=== PATIENT | male | born 1960 | race Caucasian/White ===

== ENCOUNTER 2016-08-30 16:05 | Emergency (ER) | payer MEDICARE, OTHER ==
[~2016-08-30 16:05] MED LIST: ACET-704 PO; AMIT25TA PO; DIAZ10TA PO; DOCU-27 PO; HYDR-2762 PO; WARF10TA PO; WARF7.5T PO
--- NOTE | 2016-08-30 16:17 | PHYS DOC ---
General Chief Complaint: cp Stated Complaint: CHEST PAIN Time Seen by MD: 16:11 Source: patient, old records Exam Limitations: no limitations Problems: History of Present Illness Initial Comments Pt is 56/M to ED POV c/o CP. Pt states today about noon while at rest he developed ant CP (pressure) 3/10 with dyspnea, diaphoresis, nausea, and L arm aching. Pt was d/c from [facility] yesterday after proximal LAD stent on Sunday. CP described as identical/same as before stent. Sx onset at noon, resolved upon ED arrival. 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 Timing/Duration: 4-6 hours Severity: mild Modifying Factors: improves with other Associated Symptoms: chest pain, diaphoresis, malaise, nausea/vomiting, shortness of breath, weakness, other Allergies: Coded Allergies: No Known Allergies (Unverified Allergy, Unknown, 01/11/14) Past Medical History Medical History: high cholesterol, hypertension, vascular disease, other (DVT, PE, OA, SVT) Surgical History: other (Right total hip arthroplasty at 28 y/o, alisia, appy, EGD, colonoscopy with polypectomy) Social History Smoker: cigarettes (1PPD since 21 y/o) Alcohol: rarely Drugs: none Review of Systems Constitutional: see HPIdenies chills, diaphoresisdenies fever, malaise Respiratory: denies cough, shortness of breathdenies wheezing Cardiovascular: chest paindenies edema, denies palpitations, denies syncope Gastrointestinal: denies abdominal pain, denies diarrhea, denies nausea, denies vomiting Genitourinary: denies dysuria, denies frequency, denies hematuria Musculoskeletal: see HPIdenies back pain, denies joint swelling, denies neck pain Psychiatric/Neurological: denies headache, denies numbness, denies paresthesia Hematologic/Lymphatic: denies blood clots, denies easy bleeding, denies easy bruising Physical Exam General Appearance: WD/WN, no apparent distress Eyes: bilateral eye EOMI, bilateral eye PERRL, bilateral eye normal inspection Ear, Nose, Throat: hearing grossly normal, normal ENT inspection, normal pharynx Neck: non-tender, supple Respiratory: normal breath sounds, no respiratory distress Cardiovascular: normal peripheral pulses, regular rate, rhythm Gastrointestinal: non tender, soft Back: no CVA tenderness, no vertebral tenderness Extremities: non-tender, normal inspection, other (trace pitting LE edema) 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 Dr Westfall to be consulted, probable cytology laboratory manager in am. Troponin elevation 0.33 called to ED, RN contacted/notified Dr Westfall no new orders. Departure Disposition: XFER OTHER Diagnosis: chest pain, h/o CAD Condition: STABLE Additional Instructions: EMS transfer to [facility] Dr Joshi is accepting, Dr Westfall to be consulted. CLARA TERRELL DO Aug 30, 2016 16:16
[2016-08-30] MEDS ORDERED: MORPHINE SULFATE 2 MG/ML DISP.SYRIN. IV/SQ PRN (16:45)
[2016-08-30] MEDS ORDERED: NITROGLYCERIN SUBLINGUAL 0.4 MG BOTTLE OF 25. SL PRN (17:00)
[2016-08-30] MEDS ORDERED: ASPIRIN 81 MG TAB.CHEW PO ONE (17:10)
[2016-08-30 17:31] LABS: BASO # 0.1 x10^3/uL (0.0-0.2); BASO % 1 % (0-3); EOS # 0.1 x10^3/uL (0.0-0.7); EOS % 1 % (0-3); HEMATOCRIT 45.6 % (39.0-53.0); HEMOGLOBIN 15.4 g/dL (13.0-17.5); LYMPH % 32 % (24-48); MEAN CORPUSCULAR HEMOGLOBIN 32 pg (25-35); MEAN CORPUSCULAR HGB CONC 34 g/dL (31-37); MEAN CORPUSCULAR VOLUME 94 fL (79-100); MONO # 0.4 x10^3/uL (0.0-1.1); MONO % 7 % (0-9); NEUT # 3.7 x10^3uL (1.8-7.7); NEUT % 59 % (31-73); PLATELET COUNT 249 x10^3/uL (140-400); RED BLOOD COUNT 4.88 x10^6/uL (4.30-5.70); RED CELL DISTRIBUTION WIDTH 13.2 % (11.5-14.5); WHITE BLOOD COUNT 6.3 x10^3/uL (4.0-11.0)
[2016-08-30 17:46] LABS: ALBUMIN 3.5 g/dL (3.4-5.0); ALBUMIN/GLOBULIN RATIO 0.9 (1.0-1.7); CALCIUM 9.1 mg/dL (8.5-10.1); GFR 77.3; MAGNESIUM 1.9 mg/dL (1.8-2.4); POTASSIUM 3.8 mmol/L (3.5-5.1); TOTAL BILIRUBIN 0.5 mg/dL (0.2-1.0); TOTAL PROTEIN 7.6 g/dL (6.4-8.2)
[2016-08-30] MEDS ORDERED: ONDANSETRON PF 4 MG/2 ML VIAL. IV ONE (18:30)
[2016-08-30 18:33] VITALS: BP 133/108
--- NOTE | 2016-08-31 02:49 | EKG ---
[address] [address] Test Date: 2016-08-30 Test Time: 16:14:12 Pat Name: LAKHWINDER VENTURA Department: Room: Gender: M [employer]: : 1960 Requested By: CLARA TERRELL Order Number: [id number] Reading MD: Measurements Intervals [place] Rate: 62 P: 36 RI: 148 QRS: 17 QRSD: 88 T: 18 QT: 384 QTc: 392 Interpretive Statements SINUS RHYTHM NORMAL ECG RI6.01 Unconfirmed report No previous ECG available for comparison
--- NOTE | 2016-08-31 08:08 | RAD ---
Portable chest, 08/30/2016: History: Chest pain Comparison is made to a study from 07/11/2016. The heart size and pulmonary vascularity are normal. No pulmonary infiltrates are seen. There is no evidence of pleural fluid. IMPRESSION: No acute cardiopulmonary abnormality is detected.
== END 2016-08-30 18:40 | disposition short-term general hospital (02) ==
LOC: ER 16:05
DX: R07.89 Other chest pain (principal); M79.602 Pain in left arm; I25.10 Atherosclerotic heart disease of native coronary artery without angina pectoris; I10 Essential (primary) hypertension; I47.1 Supraventricular tachycardia; E78.00 Pure hypercholesterolemia, unspecified; M19.90 Unspecified osteoarthritis, unspecified site; F17.210 Nicotine dependence, cigarettes, uncomplicated; Z86.711 Personal history of pulmonary embolism; Z86.718 Personal history of other venous thrombosis and embolism
CPT/HCPCS: 36415; 71010; 80053; 82550; 83690; 83735; 83880; 84484; 85027; 85610; 85730; 93005; 96374; 96375; 99285; J2270; J2405

== ENCOUNTER 2016-12-01 13:02 | Inpatient (IN) | payer MEDICARE, OTHER ==
[~2016-12-01] VITALS: Ht 193 cm; Wt 108.9 kg
[~2016-12-01 13:02] MED LIST changes: +DOCU-109 PO; -DOCU-27 PO; -WARF10TA PO; +WARF10TA45 PO; -WARF7.5T PO; +WARF7.5T48 PO
[2016-12-01] MEDS ORDERED: NITROGLYCERIN PREMIX 250 ML IV ONE (13:45)
[2016-12-01] MEDS ORDERED: fentaNYL PF 100 MCG/2 ML VIAL IV PRN ×2 (13:45→16:30)
[2016-12-01] MEDS ORDERED: ASPIRIN 81 MG TAB.CHEW PO ONE (13:45)
[2016-12-01 14:07] LABS: BASO # 0.1 x10^3/uL (0.0-0.2); BASO % 1 % (0-3); EOS # 0.1 x10^3/uL (0.0-0.7); EOS % 1 % (0-3); HEMATOCRIT 41.8 % (39.0-53.0); HEMOGLOBIN 14.3 g/dL (13.0-17.5); LYMPH % 31 % (24-48); MEAN CORPUSCULAR HEMOGLOBIN 31 pg (25-35); MEAN CORPUSCULAR HGB CONC 34 g/dL (31-37); MEAN CORPUSCULAR VOLUME 91 fL (79-100); MONO # 0.5 x10^3/uL (0.0-1.1); MONO % 8 % (0-9); NEUT # 3.8 x10^3uL (1.8-7.7); NEUT % 59 % (31-73); PLATELET COUNT 255 x10^3/uL (140-400); RED BLOOD COUNT 4.57 x10^6/uL (4.30-5.70); RED CELL DISTRIBUTION WIDTH 13.4 % (11.5-14.5); WHITE BLOOD COUNT 6.5 x10^3/uL (4.0-11.0)
--- NOTE | 2016-12-01 14:13 | RAD ---
INDICATION: CP COMPARISON: 08/30/2016 FINDINGS: Single view of chest obtained. No focal airspace consolidation. Mediastinal contour is unremarkable. No gross osseous destructive lesion. IMPRESSION: No focal airspace consolidation or edema.
[2016-12-01 14:20] LABS: ALBUMIN 3.4 g/dL (3.4-5.0); ALBUMIN/GLOBULIN RATIO 0.9 (1.0-1.7); CALCIUM 8.7 mg/dL (8.5-10.1); GFR 77.3; POTASSIUM 3.8 mmol/L (3.5-5.1); TOTAL BILIRUBIN 0.5 mg/dL (0.2-1.0); TOTAL PROTEIN 7.4 g/dL (6.4-8.2)
[2016-12-01] MEDS ORDERED: IOHEXOL 300 MG/ML 75 ML VIAL. IV ONE (14:35)
--- NOTE | 2016-12-01 14:38 | EKG ---
[address] [address] Test Date: 2016-12-01 Test Time: 13:24:38 Pat Name: LAKHWINDER VENTURA Department: Room: Gender: M Vp [employer]: : 1960 Requested By: ALAN BARRETT Order Number: [id number] Reading MD: Measurements Intervals [place] Rate: 82 P: 31 CT: 128 QRS: 4 QRSD: 90 T: 21 QT: 354 QTc: 416 Interpretive Statements SINUS RHYTHM NORMAL ECG RI6.01 Unconfirmed report No previous ECG available for comparison
--- NOTE | 2016-12-01 15:18 | RAD ---
INDICATION: History of pulmonary embolus with chest pain COMPARISON: 07/12/2016 TECHNIQUE: Axial CT images obtained through the chest. Intravenous contrast utilized and three-dimensional images processed per protocol. FINDINGS: Linear opacity is again seen within the lingular region. Cystic changes of lungs seen. Sub-4 mm nodule near left lung apex again seen. No evidence of pneumothorax. Sub-4 mm right lung base pulmonary nodule again seen. Subcentimeter low-attenuation lesion right lobe of liver again seen, too small to characterize. Small hiatal hernia. No thoracic aortic aneurysm. Suspected stent in the left anterior descending coronary artery. Borderline sized lymph node in the left paratracheal region again seen measuring approximately 1 cm short axis. Degenerative changes of spine. No central pulmonary embolus. IMPRESSION: 1. No central pulmonary embolus. 2. Redemonstration of multiple tiny bilateral pulmonary nodules. Given the size these are most commonly benign. 3. There are some cystic changes to the lungs bilaterally. Correlate for possible causes such as emphysema. PQRS Compliance Statement: One or more of the following individualized dose reduction techniques were utilized for this examination: 1. Automated exposure control 2. Adjustment of the mA and/or kV according to patient size 3. Use of iterative reconstruction technique
[2016-12-01 15:46] LABS: AMPHETAMINE/METHAMPHETAMINE NEG (NEG); BARBITURATES NEG (NEG); BENZODIAZEPINES POS (NEG); CANNABINOIDS NEG (NEG); COCAINE NEG (NEG); METHADONE NEG (NEG); OPIATES NEG (NEG); PHENCYCLIDINE NEG (NEG)
[2016-12-01 15:57] LABS: BILIRUBIN,URINE NEG (NEG); CLARITY,URINE CLEAR; COLOR,URINE YELLOW; GLUCOSE,URINE NEG (NEG); NITRITE,URINE NEG (NEG); UROBILINOGEN,URINE 0.2 mg/dL (0.2 mg/dL)
[2016-12-01 15:58] LABS: BACTERIA,URINE 0 /HPF (0-FEW); RBC,URINE 0 /HPF (0-2); SQUAMOUS EPITHELIAL CELL,UR FEW /LPF; WBC,URINE OCC /HPF (0-4)
[2016-12-01] MEDS ORDERED: ONDANSETRON PF 4 MG/2 ML VIAL. IV PRN (16:30)
[2016-12-01] MEDS ORDERED: ACETAMINOPHEN 325 MG TABLET PO PRN (16:30)
--- NOTE | 2016-12-01 17:16 | PDOC2 ---
JENNIFER VICENTE FARM MECHANIC 12/01/16 1716: CONSULT Date of Admission DATE: 12/01/16 TIME: 16:59 Reason for Consult: Chest pain History of Present Illness Mr Irvin is a 56 year old male with history of PCI/NILS to proximal LAD in early August who presents to the ED with complaints of chest pain, intermittent since the last 2 weeks. He reports pain both at rest and with exertion, localized to left sternal border and occasionally radiating to his back with associated nausea. He denies any difference in the pain with exertion, deep inspiration or movement. He reports that today he was at the [place] getting some medications filled when he started to have pain. He rested in an office for a few minutes without difference in the pain. He then went out to his truck, went home to find his medication list and then came to the hospital. He was given fentanyl and then placed on a nitro drip which he reports resolved his pain. He is currently on low dose Nitro and says he feels like he could go home. z Past Medical History Cardiac cath in early August of this year with single vessel coronary disease, s/ p PCI with NILS to proximal LAD. Repeat cath for chest pain in mid August with open stent and no other significant disease. Echo with normal LV function in Jun of this year MPI with normal perfusion in July of this year. Cardiovascular: hyperipidemia, Other (PSVT) Pulmonary: Pulmonary embolus, Other (DVT) Psych: Anxiety Musculoskeletal: Osteoarthritis, Other (right sided foot drop, chronic pain from right hip) Past Surgical History Past Surgical History multiple hip surgeries, cholecystectomy Family History Family History: Hypertension Social History Social History smoker, no illicit drugs, no significant ETOH Current Medications Current Medications Aspirin (Children'S Aspirin) 324 mg 1X ONCE PO Last administered on 12/01/16 14:10; Start 12/01/16 at 13:45; Stop 12/01/16 at 13:46; Status DC Nitroglycerin/ Dextrose 250 ml @ 3 mls/hr 1X ONCE IV Last administered on 12/01 14:56; Start 12/01/16 at 13:45; Stop 12/05/16 at 01:04 Fentanyl Citrate (Fentanyl 2ml Vial) 25 mcg PRN Q15MIN PRN IV PAIN GREATER THAN 3/10 Last administered on 12/01/16 14:14; Start 12/01/16 at 13:45; Stop at 13:44 Iohexol (Omnipaque 300 Mg/ml) 75 ml 1X ONCE IV Last administered on 12/01/16t 14:36; Start 12/01/16 at 14:35; Stop 12/01/16 at 14:36; Status DC Ondansetron HCl (Zofran) 4 mg PRN Q4HRS PRN IV NAUSEA/VOMITING; Start 12/01/16 at 16:30; Stop 12/02/16 at 16:29 Fentanyl Citrate (Fentanyl 2ml Vial) 50 mcg PRN Q2HR PRN IV PAIN; Start at 16:30; Stop 12/02/16 at 16:29 Acetaminophen (Tylenol) 650 mg PRN Q4HRS PRN PO FEVER; Start 12/01/16 at 16:30 ; Stop 12/02/16 at 16:29 Nitroglycerin (Nitrostat) 0.4 mg PRN Q5MIN PRN SL CHEST PAIN; Start 12/01/16 at 16:30; Stop 12/02/16 at 16:29 Active Scripts Active Reported Colace (Docusate Sodium) 100 Mg Capsule 100 Mg PO PRN DAILY PRN Valium (Diazepam) 10 Mg Tablet 10 Mg PO QHS PRN Coumadin (Warfarin Sodium) 10 Mg Tablet 10 Mg PO QTUTHSASU Coumadin (Warfarin Sodium) 7.5 Mg Tablet 7.5 Mg PO QMWF Amitriptyline Hcl 25 Mg Tablet 25 Mg PO HS Tylenol With Codeine #3 Tablet (Acetaminophen With Codeine) 1 Each Tablet 1 Each PO HS Hydrocodone-Apap 7.5-325 (Hydrocodone Bit/Acetaminophen) 1 Each Tablet 1 Tab PO PRN Q6HRS PRN Allergies: Coded Allergies: citalopram (Verified Allergy, Unknown, 12/01/16) simvastatin (Verified Allergy, Unknown, 12/01/16) Review of System as per HPI or negative General: Alert, Oriented X3, Cooperative, No acute distress HEENT: Atraumatic, EOMI, Mucous membr. moist/pink Lungs: Clear to auscultation, Normal air movement Heart: Regular rate, Normal S1, Normal S2, Other (no gallops, clicks or rubs) Abdomen: Normal bowel sounds, Soft, No tenderness Extremities: No clubbing, No cyanosis, Normal pulses Neuro: Normal speech Psych/Mental Status: Mental status NL, Mood NL VITALS Vital Signs Date Time Temp Pulse Resp B/P (MAP) Pulse Ox O2 Delivery O2 Flow Rate FiO2 12/01/16 15:55 56 12 116/72 (87) 97 Room Air 12/01/16 13:25 98.2 Labs Laboratory Tests Test 12/01/16 13:47 12/01/16 15:20 White Blood Count 6.5 x10^3/uL (4.0-11.0) Red Blood Count 4.57 x10^6/uL (4.30-5.70) Hemoglobin 14.3 g/dL (13.0-17.5) Hematocrit 41.8 % (39.0-53.0) Mean Corpuscular Volume 91 fL (79-100) Mean Corpuscular Hemoglobin 31 pg (25-35) Mean Corpuscular Hemoglobin Concent 34 g/dL (31-37) Red Cell Distribution Width 13.4 % (11.5-14.5) Platelet Count 255 x10^3/uL (140-400) Neutrophils (%) (Auto) 59 % (31-73) Lymphocytes (%) (Auto) 31 % (24-48) Monocytes (%) (Auto) 8 % (0-9) Eosinophils (%) (Auto) 1 % (0-3) Basophils (%) (Auto) 1 % (0-3) Neutrophils # (Auto) 3.8 x10^3uL (1.8-7.7) Lymphocytes # (Auto) 2.0 x10^3/uL (1.0-4.8) Monocytes # (Auto) 0.5 x10^3/uL (0.0-1.1) Eosinophils # (Auto) 0.1 x10^3/uL (0.0-0.7) Basophils # (Auto) 0.1 x10^3/uL (0.0-0.2) Prothrombin Time 22.6 SEC (9.4-11.4) Prothromb Time International Ratio 2.2 (0.9-1.1) Activated Partial Thromboplast Time 52 SEC (23-33) Sodium Level 138 mmol/L (136-145) Potassium Level 3.8 mmol/L (3.5-5.1) Chloride Level 102 mmol/L (98-107) Carbon Dioxide Level 25 mmol/L (21-32) Anion Gap 11 (6-14) Blood Urea Nitrogen 14 mg/dL (8-26) Creatinine 1.0 mg/dL (0.7-1.3) Estimated GFR (Cockcroft-Gault) 77.3 BUN/Creatinine Ratio 14 (6-20) Glucose Level 88 mg/dL (70-99) Calcium Level 8.7 mg/dL (8.5-10.1) Total Bilirubin 0.5 mg/dL (0.2-1.0) Aspartate Amino Transf (AST/SGOT) 17 U/L (15-37) Alanine Aminotransferase (ALT/SGPT) 22 U/L (16-63) Alkaline Phosphatase 77 U/L (46-116) Troponin I Quantitative < 0.017 ng/mL (0-0.055) UM-Awo-A-Type Natriuretic Peptide 37 pg/mL (0-124) Total Protein 7.4 g/dL (6.4-8.2) Albumin 3.4 g/dL (3.4-5.0) Albumin/Globulin Ratio 0.9 (1.0-1.7) Lipase 122 U/L (73-393) Urine Collection Type Unknown Urine Color Yellow Urine Clarity Clear Urine pH 5.0 Urine Specific [place] <=1.005 Urine Protein Neg (NEG-TRACE) Urine Glucose (UA) Neg mg/dL (NEG) Urine Ketones (Stick) Neg mg/dL (NEG) Urine Blood Small (NEG) Urine Nitrite Neg (NEG) Urine Bilirubin Neg (NEG) Urine Urobilinogen Dipstick 0.2 mg/dL (0.2 mg/dL) Urine Leukocyte Esterase Neg (NEG) Urine RBC 0 /HPF (0-2) Urine WBC Occ /HPF (0-4) Urine Squamous Epithelial Cells Few /LPF Urine Bacteria 0 /HPF (0-FEW) Urine Opiates Screen Neg (NEG) Urine Methadone Screen Neg (NEG) Urine Barbiturates Neg (NEG) Urine Phencyclidine Screen Neg (NEG) Urine Amphetamine/Methamphetamine Neg (NEG) Urine Benzodiazepines Screen Pos (NEG) Urine Cocaine Screen Neg (NEG) Urine Cannabinoids Screen Neg (NEG) Urine Ethyl Alcohol Neg (NEG) Images EKG - sinus rhythm, delayed R progression, non specific st/t abn. Assessment/Plan 1. Chest pain, atypical - currently on NTG drip, no acute EKG abn, normal initial troponin. PCI with NILS to LAD in August with repeat cath 2 weeks later and open stent with otherwise normal coronaries. Continue medical mgmt, if enzymes remain normal suggest oral nitrates and outpatient follow up. 2. hypertension - controlled 3. hyperlipidemia - continue statin 4. 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 if no change in [place], and pain controlled, could follow up outpatient for further evaluation in 1-2 weeks. Problems: DANTE HAYES MD 12/01/16 2131: CONSULT Allergies: Coded Allergies: citalopram (Verified Allergy, Unknown, 12/01/16) simvastatin (Verified Allergy, Unknown, 12/01/16) Assessment/Plan Patient seen and examined. Agree with SUPERVISOR RIDES's assessment and plan. CP with atypical features. NH ruled out based on EKG and cardiac enzymes. Recent cath results noted above. Agree with initiating long acting nitrates. Possible DC home in AM. If CP recurrent, we will consider MPI as outpatient. Thank you for your consultation. Problems: JENNIFER VICENTE APRN Dec 01, 2016 17:16 DANTE HAYES MD Dec 01, 2016 21:31
[2016-12-01 17:43] VITALS: BP 118/80
--- NOTE | 2016-12-01 18:40 | ED.ADGEN ---
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 Patient states he is experiencing a sharp pain with tingling consistent with the pain he experienced when his stent was placed intermittently all day today. Currently states the pain is about a 4 out of 10. States it will occasionally radiate somewhat into his arm, into his back. Associated with some nausea, no vomiting, very mild shortness of breath, denies any focal weakness, numbness, tingling, fevers, chills, abdominal pain, swelling extremities, rashes , recent travel or surgery. No swelling extremities. States he's been compliant with all medications including his Coumadin. He follows with Dr. Hinson of cardiology. Review of Systems Review of Systems Constitutional: Denies fever or chills [] Eyes: Denies change in visual acuity, redness, or eye pain [] HENT: Denies nasal congestion or sore throat [] Respiratory: Denies cough or shortness of breath [] Cardiovascular: No additional information not addressed in HPI [] GI: Denies abdominal pain, nausea, vomiting, bloody stools or diarrhea [] : Denies dysuria or hematuria [] Musculoskeletal: Denies back pain or joint pain [] Integument: Denies rash or skin lesions [] Neurologic: Denies headache, focal weakness or sensory changes [] Endocrine: Denies polyuria or polydipsia [] Current Medications Current Medications Current Medications Medications (Trade) Dose Ordered Sig/Josefa Start Time Stop Time Status Last Admin Dose Admin Acetaminophen (Tylenol) 650 mg PRN Q4HRS PRN 12/01/16 16:30 12/02/16 16:29 Aspirin (Children'S Aspirin) 324 mg 1X ONCE 12/01/16 13:45 12/01/16 13:46 DC 12/01/16 14:10 324 MG Fentanyl Citrate (Fentanyl 2ml Vial) 50 mcg PRN Q2HR PRN 12/01/16 16:30 12/02/16 16:29 Iohexol (Omnipaque 300 Mg/ml) 75 ml 1X ONCE 12/01/16 14:35 12/01/16 14:36 DC 12/01/16 14:36 75 ML Nitroglycerin (Nitrostat) 0.4 mg PRN Q5MIN PRN 12/01/16 16:30 12/02/16 16:29 Nitroglycerin/ Dextrose 250 ml @ 3 mls/hr 1X ONCE 12/01/16 13:45 12/05/16 01:04 12/01/16 14:56 3 MLS/HR Ondansetron HCl (Zofran) 4 mg PRN Q4HRS PRN 12/01/16 16:30 12/02/16 16:29 Allergies Allergies Allergies Coded Allergies Type Severity Reaction Last Updated Verified citalopram Allergy Unknown 12/01/16 Yes simvastatin Allergy Unknown 12/01/16 Yes Physical Exam Physical Exam Constitutional: Well developed, well nourished, no acute distress, non-toxic appearance. [] HENT: Normocephalic, atraumatic, bilateral external ears normal, oropharynx moist, no oral exudates, nose normal. [] Eyes: PERRLA, EOMI, conjunctiva normal, no discharge. [] Neck: Normal range of motion, no tenderness, supple, no stridor. [] Cardiovascular:Heart rate regular rhythm, no murmur [] Lungs & Thorax: Bilateral breath sounds clear to auscultation [] Abdomen: Bowel sounds normal, soft, no tenderness, no masses, no pulsatile masses. [] Skin: Warm, dry, no erythema, no rash. [] Back: No tenderness, no CVA tenderness. [] Extremities: No tenderness, no cyanosis, no clubbing, ROM intact, no edema. [] Neurologic: Alert and oriented X 3, normal motor function, normal sensory function, no focal deficits noted. [] Psychologic: Affect normal, judgement normal, mood normal. [] Current Patient Data Vital Signs Vital Signs Date Time Temp Pulse Resp B/P (MAP) Pulse Ox O2 Delivery O2 Flow Rate FiO2 12/01/16 15:55 56 12 116/72 (87) 97 Room Air 12/01/16 13:25 98.2 Lab Results Laboratory Tests Test 12/01/16 13:47 12/01/16 15:20 White Blood Count 6.5 x10^3/uL (4.0-11.0) Red Blood Count 4.57 x10^6/uL (4.30-5.70) Hemoglobin 14.3 g/dL (13.0-17.5) Hematocrit 41.8 % (39.0-53.0) Mean Corpuscular Volume 91 fL (79-100) Mean Corpuscular Hemoglobin 31 pg (25-35) Mean Corpuscular Hemoglobin Concent 34 g/dL (31-37) Red Cell Distribution Width 13.4 % (11.5-14.5) Platelet Count 255 x10^3/uL (140-400) Neutrophils (%) (Auto) 59 % (31-73) Lymphocytes (%) (Auto) 31 % (24-48) Monocytes (%) (Auto) 8 % (0-9) Eosinophils (%) (Auto) 1 % (0-3) Basophils (%) (Auto) 1 % (0-3) Neutrophils # (Auto) 3.8 x10^3uL (1.8-7.7) Lymphocytes # (Auto) 2.0 x10^3/uL (1.0-4.8) Monocytes # (Auto) 0.5 x10^3/uL (0.0-1.1) Eosinophils # (Auto) 0.1 x10^3/uL (0.0-0.7) Basophils # (Auto) 0.1 x10^3/uL (0.0-0.2) Prothrombin Time 22.6 SEC (9.4-11.4) H Prothrombin Time INR 2.2 (0.9-1.1) H PTT 52 SEC (23-33) H Sodium Level 138 mmol/L (136-145) Potassium Level 3.8 mmol/L (3.5-5.1) Chloride Level 102 mmol/L (98-107) Carbon Dioxide Level 25 mmol/L (21-32) Anion Gap 11 (6-14) Blood Urea Nitrogen 14 mg/dL (8-26) Creatinine 1.0 mg/dL (0.7-1.3) Estimated GFR (Cockcroft-Gault) 77.3 BUN/Creatinine Ratio 14 (6-20) Glucose Level 88 mg/dL (70-99) Calcium Level 8.7 mg/dL (8.5-10.1) Total Bilirubin 0.5 mg/dL (0.2-1.0) Aspartate Amino Transferase (AST) 17 U/L (15-37) Alanine Aminotransferase (ALT) 22 U/L (16-63) Alkaline Phosphatase 77 U/L (46-116) Troponin I Quantitative < 0.017 ng/mL (0-0.055) WY-Xey-X-Type Natriuretic Peptide 37 pg/mL (0-124) Total Protein 7.4 g/dL (6.4-8.2) Albumin 3.4 g/dL (3.4-5.0) Albumin/Globulin Ratio 0.9 (1.0-1.7) L Lipase 122 U/L (73-393) Urine Collection Type Unknown Urine Color Yellow Urine Clarity Clear Urine pH 5.0 Urine Specific [place] <=1.005 Urine Protein Neg (NEG-TRACE) Urine Glucose (UA) Neg mg/dL (NEG) Urine Ketones (Stick) Neg mg/dL (NEG) Urine Blood Small (NEG) Urine Nitrite Neg (NEG) Urine Bilirubin Neg (NEG) Urine Urobilinogen Dipstick 0.2 mg/dL (0.2 mg/dL) Urine Leukocyte Esterase Neg (NEG) Urine RBC 0 /HPF (0-2) Urine WBC Occ /HPF (0-4) Urine Squamous Epithelial Cells Few /LPF Urine Bacteria 0 /HPF (0-FEW) Urine Opiates Screen Neg (NEG) Urine Methadone Screen Neg (NEG) Urine Barbiturates Neg (NEG) Urine Phencyclidine Screen Neg (NEG) Urine Amphetamine/Methamphetamine Neg (NEG) Urine Benzodiazepines Screen Pos (NEG) Urine Cocaine Screen Neg (NEG) Urine Cannabinoids Screen Neg (NEG) Urine Ethyl Alcohol Neg (NEG) EKG EKG EC: Sinus rhythm, heart rate 82 bpm, upright axis, QTC of 416, SD 120, QRS of 90, no ST elevations or depressions, contour contour abnormalities noted in inferior leads, with mild baseline artifact, does not meet STEMI criteria. As interpreted by me. Radiology/Procedures Radiology/Procedures [][address] [id number] IMAGING REPORT Signed PATIENT: LAKHWINDER VENTURA ACCOUNT: [id number] : 1960 LOCATION: ER AGE: 56 SEX: M EXAM STATUS: REG ER ORD. PHYSICIAN: ALAN BARRETT DO REASON: CP PROCEDURE: PORTABLE CHEST 1V INDICATION: CP COMPARISON: 08/30/2016 FINDINGS: Single view of chest obtained. No focal airspace consolidation. Mediastinal contour is unremarkable. No gross osseous destructive lesion. IMPRESSION: No focal airspace consolidation or edema. DICTATED AND SIGNED BY: JOEL MENDEZ MD DATE: 12/01/161408 CC: ALAN BARRETT DO; PCP,NO ~ Impressions: [place] [id number] IMAGING REPORT Signed PATIENT: LAKHWINDER VENTURA ACCOUNT: [id number] : 1960 LOCATION: ER AGE: 56 SEX: M EXAM STATUS: REG ER ORD. PHYSICIAN: ALAN BARRETT DO REASON: Cp/SOB, hx PE PROCEDURE: CT ANGIOGRAPHY CHEST INDICATION: History of pulmonary embolus with chest pain COMPARISON: 07/12/2016 TECHNIQUE: Axial CT images obtained through the chest. Intravenous contrast utilized and three-dimensional images processed per protocol. FINDINGS: Linear opacity is again seen within the lingular region. Cystic changes of lungs seen. Sub-4 mm nodule near left lung apex again seen. No evidence of pneumothorax. Sub-4 mm right lung base pulmonary nodule again seen. Subcentimeter low-attenuation lesion right lobe of liver again seen, too small to characterize. Small hiatal hernia. No thoracic aortic aneurysm. Suspected stent in the left anterior descending coronary artery. Borderline sized lymph node in the left paratracheal region again seen measuring approximately 1 cm short axis. Degenerative changes of spine. No central pulmonary embolus. IMPRESSION: 1. No central pulmonary embolus. 2. Redemonstration of multiple tiny bilateral pulmonary nodules. Given the size these are most commonly benign. 3. There are some cystic changes to the lungs bilaterally. Correlate for possible causes such as emphysema. PQRS Compliance Statement: One or more of the following individualized dose reduction techniques were utilized for this examination: 1. Automated exposure control 2. Adjustment of the mA and/or kV according to patient size 3. Use of iterative reconstruction technique DICTATED AND SIGNED BY: JOEL MENDEZ MD DATE: 12/01/16 1502 CC: ALAN BARRETT DO; PCP,NO ~ Course & Med Decision Making Course & Med Decision Making Pertinent Labs and Imaging studies reviewed. (See chart for details) Patient resting more comfortably receiving fentanyl and nitroglycerin in the ED. Chest pain is resolved. ECG does not reveal any concerning findings, chest x -ray is unremarkable, initial troponin is negative. Based on patient's history of PE, although the INR is 2.2, after discussion with patient, CT of the chest obtained to rule out any occult recurrence or other occult chest finding that would be causing his symptoms. CT of the chest not reveal any concerning findings, no evidence of large central PE. I did discuss findings as above with JATIN Suarez for cardiology, patient is agreeable for admission to the hospital for additional evaluation. Findings as above discussed with Dr. Lyn of internal medicine, patient accepted his service as a full admission to the telemetry floor. Patient was evaluated in the emergency department by JATIN Reyes for cardiology, and by Dr. Hinson, at this time will continue to follow serial enzymes, symptomatically management with nitroglycerin, and close monitoring, patient admitted to [facility] without issue, bridge orders entered per discussion. Final Impression Final Impression [] Problems: Dragon Disclaimer Dragon Disclaimer This electronic medical record was generated, in whole or in part, using a voice recognition dictation system. Departure: Impression: Primary Impression: Chest pain Disposition: ADMITTED INPATIENT Admitting Physician: Christian Lyn Condition: IMPROVED ALAN BARRETT DO Dec 01, 2016 18:40
[2016-12-01 20:39] VITALS: BP 126/78
[2016-12-01 21:43] VITALS: BP 126/91
[2016-12-01] MEDS: ISOSORBIDE MONONITRATE ER 30 MG TAB.ER.24H PO SCH (21:59)
[2016-12-01] MEDS ORDERED: WARFARIN 7.5 MG TABLET. PO SCH (22:10)
[2016-12-01 22:47] VITALS: BP 116/73
[2016-12-01 23:37] VITALS: BP 108/64
[2016-12-02] VITALS (13 sets, daily range): BP systolic 95–122; BP diastolic 59–80
--- NOTE | 2016-12-02 04:15 | ACF ---
Admission Criteria Forms CARDIOLOGY GRG Clinical Indications for Admission to Inpatient Care ( Place 'X' for any and all applicable criteria): Hospital admission is needed for appropriate care of the patient because of ANY ONE of the following (1): [ ] I. Hemodynamic instability as indicated by ALL of the following (1)(2)(3) (4)(5) [ ]a) Vital signs or other findings not as expected for chronic patient condition or baseline [ ]b) Instability indicated by ANY ONE of the following: [ ]i) Hypotension [ ]ii) Symptomatic Tachycardia unresponsive to treatment ( e.g., analgesia, fluids, sedation as indicated) [ ]iii) Inadequate perfusion indicated by ANY ONE of the following: [ ] 1) Lactic acidosis (> 2 mmol/L) [ ] 2) New abnormal capillary refill (> 3 seconds) [ ] 3) Reduced urine output [ ] 4) New altered mental status [ ]iv) Orthostatic vital sign changes unresponsive to treatment (e.g., fluids) [ ]v) IV inotropic or vasopressor medication required to maintain adequate blood pressure or perfusion [ ] II. Severe heart failure as indicated by ANY ONE of the following(17)(18) [ ]a) Respiratory distress [ ]b) Hypotension [ ]c) Anasarca (refractory to outpatient therapy) [ ]d) Cardiac arrhythmias of immediate concern [ ]e) Myocardial ischemia [ ] III. Cardiac arrhythmias or findings of immediate concern indicated by ANY ONE of the following (19)(20): [ ] a) Heart rhythms that are inherently dangerous or unstable indicated by ANY ONE of the following (21)(22)(23): [ ] i) Resuscitated ventricular fibrillation or cardiac arrest [ ] ii) Ventricular escape rhythm [ ] iii) Sustained ventricular tachycardia (30 seconds or more of ventricular rhythm at greater than 100 beats per minute) [ ] iv) Nonsustained ventricular tachycardia and ANY ONE of the following: [ ] 1) Suspected cardiac ischemia as cause or consequence of ventricular tachycardia [ ] 2) In setting of acute myocarditis [ ] b) Unstable cardiac conduction defects indicated by ANY ONE of the following(23)(24)(25) [ ] i) Type II second-degree atrioventricular block [ ]ii) Third-degree atrioventricular block [ ]iii) New-onset left bundle branch block with suspected myocardial ischemia [ ]c) Any heart rhythm and ANY ONE of the following (21)(22)(26)(27) (28) [ ] i) Continuous long-term ECG monitoring needed (e.g., initiation of drug requiring monitoring for more than 24 hours) [ ] ii) Patient has automatic implanted cardioverter defibrillator that is repeatedly firing, malfunctioning, or in need of immediate adjustment of settings beyond the scope of ambulatory or observation care [ ]d) Heart rhythms of concern due to ANY ONE of the following: [ ] i) Hypotension [ ] ii) Respiratory distress [ ] iii) Association with other significant symptoms (e.g., bradycardia with syncope or ongoing dizziness, supraventricular tachycardia with chest pain (14)(15)(17) [ ] IV. Monitoring for cardiac contusion beyond the scope of observation care needed [A](30)(31)(32) [ ] V. Surgical or device complication (e.g., valve replacement complication , pacemaker dysfunction) (35)(41)(44)(45)(46) [ ] . Inpatient palliative care needed. [B](49) Also use Inpatient Palliative Care Criteria [ ] VII. Nonbacterial thrombotic (marantic) endocarditis (36)(43)(47)(48) [X ] VIII. Cardiology condition, symptom, or finding for which emergency and observation care has failed or are not considered appropriate. [ ] IX. Acute valvular disease requiring inpatient as indicated by ANY ONE of the following (41) [ ]a) Acute valvular regurgitation (42) [ ]b) Noninfectious valvulitis (43) [ ]c) Obstructive valve thrombosis [ ]d) Paravalvular leak [ ]e) Other significant valvular disorder remaining after emergency or observation level of care (as appropriate) [ ]X. Pericardial disease requiring inpatient treatment as indicated by ANY ONE of the following (33)(34)(35)(36)(37) [ ]a) Suspected tamponade (38)(39)(40) [ ]b) Hemopericardium [ ]c) Other significant pericardial disorder remaining after emergency or observation level of care (as appropriate) [ ] XI. Cardiac ischemia beyond scope of emergency and observation care. [ ] XII. Hypertension requiring inpatient treatment as indicated by ANY ONE of the following (6)(7)(8) [ ]a) SBP greater than 220 mm Hg or DBP greater than 120 mmHg despite treatment [ ]b) SBP greater than 140 mm Hg or DBP greater than 100 mm Hg with evidence of acute end organ damage as indicated by ANY ONE of the following [ ] i) Encephalopathy [ ] ii) Acute renal failure as indicated by new onset of ANY ONE of the following (9)(10)(11)(12)(13) [ ]1) 3-fold rise in serum creatinine from baseline [ ]2) Serum creatinine greater than 4 mg/dL ( 354 micromoles/L) with acute rise greater than 0.5 mg/dL (44.2 micromoles/L) [ ]3) Reduction of more than 75% in estimated glomerular filtration rate from baseline [ ]4) Estimated glomerular filtration rate less than 35 mL/min/1.73m2 (0.59 mL/sec/1.73m2) in child up to 18 years of age [ ]5) Cessation of urine output indicated by ALL of the following [ ]A. Adequate volume status [ ]B. Inadequate urine output as indicated by ANY ONE of the following [ ]a. Urine output less than 0.3 mL/kg/hr for 24 hours [ ]b. Anuria (urine output less than 0.1 mL/kg/hr) for 12 hours [ ] iii) Aortic dissection [ ] iv) Myocardial Ischemia [ ] v) Left ventricular heart failure [ ]vi) Retinal Hemorrhage [ ]vii) Other significant finding [ ]c) Hypertension in child requiring inpatient treatment as indicated by ALL of the following(14)(15)(16) [ ] i) Outpatient treatment not effective, not available, or not appropriate [ ]ii) SBP or DBP greater than 95th percentile for age [ ]iii) Evidence of acute end organ damage as indicated by ANY ONE of the following [ ]1) Altered mental status [ ]2) Acute renal failure as indicated by new onset of ANY ONE of the following(9)(10)(11)(12)(13) [ ]A. 3-fold rise in serum creatinine from baseline [ ]B. Serum creatinine greater than 4 mg/dL (354 micromoles/L) with acute rise greater than 0.5 mg/dL (44.2 micromoles/L) [ ]C. Reduction of more than 75% in estimated glomerular filtration rate from baseline [ ]D. Estimated glomerular filtration rate less than 35 mL/min/1.73m2 (0.59 mL/sec/1.73m2) in child up to 18 years of age [ ]E. Cessation of urine output indicated by ALL of the following [ ]a. Adequate volume status [ ]b. Inadequate urine output as indicated by ANY ONE of the following [ ]i) Urine output less than 0.3 mL/kg/hr for 24 hours [ ]ii) Anuria ( urine output less than 0.1 mL/kg/hr) for 12 hours [ ]3) Severe headache [ ]4) Visual disturbance [ ]5) Retinal hemorrhage [ ]6) Other significant finding [ ]XIII. Complications of transplanted heart indicated by ANY ONE of the following(61): [ ]a) Acute graft rejection requiring inpatient management (eg, intravenous immunosuppression)(62)(63) [ ]b) Acute graft heart failure indicated by ANY ONE of the following(64): [ ]i) Hemodynamic instability [ ]ii) Cardiac arrhythmias of immediate concern [ ]iii) Pulmonary edema that is very severe (eg, mechanical ventilation needed, imminent or likely, need for 100% oxygen to keep oxygen saturation above 90%) [ ]iv) Pulmonary edema that is persistent as indicated by ALL of the following: [ ]1) New need for oxygen therapy to keep oxygen saturation above 90% (or increased FiO2 need from baseline) [ ]2) Has not improved sufficiently with emergency department or observation care IV diuretics or other heart failure treatments[E] [ ]v) Altered mental status that is severe or persistent [ ]vi) Increased creatinine (new on laboratory test) with reduction of more than 50% in estimated glomerular filtration rate from baseline [ ]vii) Progressively (ongoing) rising creatinine (known from past laboratory test) with reduction of more than 25% in estimated glomerular filtration rate from baseline [ ]viii) Acute renal failure [ ]ix) Acute peripheral ischemia (eg, examination shows pulseless, cool, mottled, or cyanotic extremity) [ ]x) Pulmonary artery catheter monitoring needed [ ]xi) Other sign or symptom of heart failure requiring inpatient treatment (ie, too severe or not responsive to outpatient and observation care treatment) [ ]c) Infection requiring inpatient management (eg, Hemodynamic instability, need for intravenous antimicrobial treatment)(66)(67)(68)(69)(70) [ ]d) Cardiac allograft vasculopathy requiring inpatient management ( eg evidence of cardiac ischemia)(71) [ ]e) Other complication of transplanted heart (eg, stroke, severe pulmonary hypertension, severe valvular dysfunction) requiring inpatient management(72) The original [facility] content created by [facility] has been revised. The portions of the content which have been revised are identified through the use of italic text or in bold, and [facility] has neither reviewed nor approved the modified material. All other unmodified content is copyright [facility]. Please see references footnoted in the original [facility] edition 2016 Admission Criteria Met?: Yes BABITA FLORES Dec 02, 2016 04:15
[2016-12-02 06:32] LABS: BASO % 1 % (0-3); EOS # 0.1 x10^3/uL (0.0-0.7); EOS % 3 % (0-3); HEMATOCRIT 38.5 % (39.0-53.0); HEMOGLOBIN 13.1 g/dL (13.0-17.5); LYMPH # 1.8 x10^3/uL (1.0-4.8); LYMPH % 32 % (24-48); MEAN CORPUSCULAR HEMOGLOBIN 31 pg (25-35); MEAN CORPUSCULAR HGB CONC 34 g/dL (31-37); MEAN CORPUSCULAR VOLUME 92 fL (79-100); MONO # 0.5 x10^3/uL (0.0-1.1); MONO % 9 % (0-9); NEUT # 3.1 x10^3uL (1.8-7.7); NEUT % 56 % (31-73); PLATELET COUNT 228 x10^3/uL (140-400); RED BLOOD COUNT 4.18 x10^6/uL (4.30-5.70); RED CELL DISTRIBUTION WIDTH 13.2 % (11.5-14.5); WHITE BLOOD COUNT 5.5 x10^3/uL (4.0-11.0)
[2016-12-02 06:42] LABS: CALCIUM 8.7 mg/dL (8.5-10.1); CREATININE 1.1 mg/dL (0.7-1.3); GFR 69.2; POTASSIUM 4.2 mmol/L (3.5-5.1)
[2016-12-02] MEDS: ISOSORBIDE MONONITRATE ER 30 MG TAB.ER.24H PO SCH (08:21)
[2016-12-02] MEDS: NITROGLYCERIN SUBLINGUAL 0.4 MG BOTTLE OF 25. SL PRN ×2 (11:52→12:11)
[2016-12-02] MEDS ORDERED: WARFARIN 10 MG TABLET. PO SCH (16:00)
[2016-12-02] MEDS ORDERED: ISOS30TA4 PO (16:29)
[2016-12-02] MEDS ORDERED: NITR0.4T22 SL (16:29)
--- NOTE | 2016-12-02 23:49 | DS ---
DATE OF DISCHARGE: 12/02/2016 HISTORY OF PRESENT ILLNESS: The patient is a 56-year-old male patient who came to the Emergency Room complaining of chest pain, intermittent, started about 2 weeks ago. He gets chest pain at rest and with exertion, localized to the left sternal border, occasionally radiating to his back associated with nausea. Denied any vomiting, denied any association with exertion. The pain is not worsened by deep inspiration and movement. Denied any shortness of breath, most of the time except yesterday. He was not sure if he has diaphoresis. He was seen in the Emergency Room and his pain has responded to Fentanyl as well as nitroglycerin drip. The patient was admitted to the ICU and has had 3 sets of cardiac enzymes and all of them were negative with troponin less than 0.017. He was seen in consultation by the Cardiology team who added Imdur, and they recommended that patient can be safely discharged as he has had cardiac catheterization and stent deployment using a drug-eluting stent in August of this year. His echocardiogram was normal with normal left ventricular systolic function, ejection fraction and in fact he has a nuclear stress test done in July of this year, which showed normal perfusion. PHYSICAL EXAMINATION: GENERAL: Prior to discharge, the patient was resting slightly, propped up in bed, no apparent distress. He was slightly pale. No jaundice, cyanosis, or thyromegaly. No jugular venous distension. No limb edema. VITAL SIGNS: His heart rate was 69, blood pressure was 111/77, temperature was 97.6, respiratory rate was 18 and oxygen saturation was 97%. HEAD, EYES, EARS, NOSE AND THROAT: Showed normocephalic, atraumatic. NECK: Supple. HEART: Showed normal first and second heart sounds with no gallop, rub or murmur. CHEST: Clear to auscultation. No crepitation or rhonchi. ABDOMEN: Distended, soft, nontender. NEUROLOGIC: He was awake, alert, responding appropriately. Cranial nerves intact. EXTREMITIES: He moves extremities without difficulty. LABORATORY DATA: His lab work this morning showed a serum sodium 139, potassium 4.2, chloride 104, bicarbonate 30, anion gap of 5, BUN 14, creatinine 1.1. Estimated GFR was 69 mL per minute. His glucose was 16 and calcium was 8.7. His white cell count was 5500, hemoglobin 13, hematocrit 38.5, MCV 92, and platelet count 228,000. His prothrombin time was 21.2. INR of 2.1. DISCHARGE MEDICATIONS: He was discharged to home to continue on following medications: Isosorbide mononitrate 30 mg once a day, nitroglycerin 0.4 mg sublingually every 5 minutes x 3, Tylenol with Codeine 1 tablet at bedtime, amitriptyline 25 mg p.o. at bedtime, but at bedtime, diazepam 10 mg at bedtime, Colace 100 mg daily as needed for constipation, hydrocodone/APAP 7.5/325 one tablet every 6 hours. He is on Coumadin 7.5 mg on Sunday, Sunday, Sunday and Coumadin 10 mg on Sunday, , Sunday and Sunday. FINAL DISCHARGE DIAGNOSES: Chest pain, myocardial infarction was ruled out. Coronary artery disease, status post stenting using drug-eluting stent. Other medical problems include DVT and PE. He is also known to have hyperlipidemia, generalized osteoarthritis, right-side footdrop, chronic pain from right hip joint as well as anxiety and depression. HOMERO MCCONNELL MD DR: PERRY/marcelino JOB#: [id number] / [id number]
--- NOTE | 2016-12-03 03:52 | HP ---
ADMIT DATE: 12/02/2016 HISTORY OF PRESENT ILLNESS: The patient is a 56-year-old male patient who is known to have coronary artery disease with status post PCI with drug-eluting stent deployment to proximal left anterior descending artery in early August, who came in last night to the Emergency Room complaining of chest pain, intermittent, that started about 2 weeks ago. His pain can be both at rest and on exertion, localized to the left sternal border, associated with nausea, but no vomiting. He did have shortness of breath yesterday and he was not sure whether he was diaphoretic or not. It does not radiate to left arm or left shoulder. He was not sure about the duration of his pain, it can be anything from a few seconds to a few minutes. He does not have any nitroglycerin at home and said yesterday he was given aspirin, fentanyl, and was started on nitroglycerin drip while at Emergency Room and the pain was eventually relieved. After his nitroglycerin drip was discontinued this morning, he had 2 episodes of chest pain, one relieved with one nitroglycerin, the other one relieved by 2 nitroglycerin sublingually. He was evaluated in the Emergency Room and his first set of cardiac enzymes showed that his troponin was less than 0.017 and therefore, the patient was admitted to the ICU and to do 2 more sets of cardiac enzyme and to check his fasting lipid profile and to consult the cardiology team for further evaluation and treatment. PAST MEDICAL HISTORY: Significant for coronary artery disease, status post PCI and drug-eluting stent deployment in proximal and left anterior descending. He apparently had had a repeat catheterization for chest pain mid August with open stent. No other significant disease. His echocardiogram at that time showed normal left ventricular systolic function and his nuclear stress test showed normal perfusion. Other medical problems include hyperlipidemia, deep vein thrombosis as well as pulmonary embolism, anxiety, osteoarthritis, chronic pain from right hip and right-sided foot drop. PAST SURGICAL HISTORY: Significant for multiple hip surgeries, cholecystectomy. He has also underwent appendectomy, esophagogastroduodenoscopy as well as colonoscopy with polypectomy. ALLERGIES: He has no known drug allergies. MEDICATIONS: He is currently on following medications: He is on Tylenol No. 3 one tablet at bedtime, amitriptyline 25 mg at bedtime, diazepam 10 mg at bedtime, Colace 100 mg daily p.r.n. for constipation, hydrocodone/APAP 7.5/325 one every 6 hours as needed for pain. He is also on Coumadin 7.5 mg on Sunday, Sunday, Sunday and 10 mg on Sunday, , Sunday, Sunday. FAMILY HISTORY: He has 2 brothers, 1 older and 1 younger. Father is still alive at the age of ____. He is known to have atrial fibrillation and underwent maze procedure. Mother is still alive at the age of 83 and she has skin cancer. SOCIAL HISTORY: He is , has 3 daughters and one son. He has been a smoker since he is 21 years old and smokes a pack a day. He drinks 5 drinks a year. He does not use any drugs. 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 PHYSICAL EXAMINATION: GENERAL: On arrival to the Emergency Room, he looked well and was clearly in no apparent respiratory distress, pale, no jaundice, cyanosis or thyromegaly. No jugular venous distention. No limb edema. VITAL SIGNS: His heart rate was 79, blood pressure was 113/73, temperature was 98.2, respiratory rate was 12 and oxygen saturation was 96% on room air. HEAD, EYES, EARS, NOSE AND THROAT: Showed normocephalic, atraumatic. NECK: Supple. HEART: Showed normal first and second sounds. No gallop, rub or murmur. CHEST: Clear to auscultation. No crepitation or rhonchi. ABDOMEN: Distended, soft, nontender. NEUROLOGIC: He was awake, alert, responding appropriately. All his cranial nerves are intact. EXTREMITIES: He moves his extremities without difficulty. LABORATORY DATA: On arrival to the Emergency Room, he has had lab work done including a CBC with a white cell count of 6500, hemoglobin 14, hematocrit 42, MCV 91, and platelet count 255,000 with normal manual differential. His chemistry showed a serum sodium 138, potassium 3.8, chloride 102, bicarbonate 25, anion gap of 11, BUN 14, creatinine 1, estimated GFR was 77 mL per minute. His glucose was 88, calcium was 8.7. Total bilirubin, AST, ALT, alkaline phosphatase were normal. His beta natriuretic peptide was 37, total protein was 7.4, albumin 3.4, lipase was 22. First set of cardiac enzyme was less than 0.017. His prothrombin time was 22.6, INR of 2.2 and APTT was 52. Urinalysis showed the urine was yellow, clear with a pH of 5, specific gravity of 1.005. The urine was negative for protein, glucose, ketones. There was small amount of blood, negative for nitrite and leukocyte esterase. There are no rbc's, occasional wbc's, very few bacteria and urine tox screen was positive for benzodiazepine. His chest x-ray showed no focal airspace consolidation or edema. He did have also a CT angio of the chest, which showed that he has linear opacities again seen within the lingular region, cystic changes of the lungs seen. He has a 4 mm nodule near left lung apex again seen, no evidence of pneumothorax, small hiatal hernia, no thoracic aortic aneurysm, suspected stent in the left anterior descending coronary artery, borderline sized lymph nodes in the left paratracheal region again seen measuring approximately 1 cm short axis degenerative changes, no central pulmonary emboli. The patient was admitted to the ICU to do 2 more sets of cardiac enzymes and to consult the children's tutor. We have continued all his medication. We will decide on further management according to his cardiac enzyme and the recommendation by the children's tutor. HOMERO MCCONNELL MD DR: PERRY/marcelino JOB#: [id number] / [id number]
== END 2016-12-02 16:40 | disposition home or self-care (01) | DRG 392 ==
LOC: ER 13:02 → ICU 18:04
PROVIDERS: ADMIT Internal Medicine; ATTEND Internal Medicine
DX: K21.9 Gastro-esophageal reflux disease without esophagitis (principal); E78.5 Hyperlipidemia, unspecified; F17.210 Nicotine dependence, cigarettes, uncomplicated; F32.9 Major depressive disorder, single episode, unspecified; F41.9 Anxiety disorder, unspecified; G89.29 Other chronic pain; I10 Essential (primary) hypertension; I25.10 Atherosclerotic heart disease of native coronary artery without angina pectoris; Z96.649 Presence of unspecified artificial hip joint; M15.9 Polyosteoarthritis, unspecified; M21.379 Foot drop, unspecified foot; Z79.01 Long term (current) use of anticoagulants; Z80.8 Family history of malignant neoplasm of other organs or systems; Z82.49 Family history of ischemic heart disease and other diseases of the circulatory system; Z86.711 Personal history of pulmonary embolism; Z90.49 Acquired absence of other specified parts of digestive tract; Z95.5 Presence of coronary angioplasty implant and graft
CPT/HCPCS: 36415; 71010; 71275; 80048; 80053; 81001; 83690; 83880; 84484; 85027; 85610; 85730; 87641; 93005; 96374; 96375; 99406; G0481; J3010; J3490; Q9967; 99285-25

== ENCOUNTER 2017-01-04 14:46 | Observation (INO) | payer MEDICARE, OTHER ==
[~2017-01-04] VITALS: Ht 193 cm; Wt 116.0 kg
[~2017-01-04 14:46] MED LIST changes: +ISOS30TA4 PO; +NITR0.4T22 SL
[2017-01-04] MEDS ORDERED: fentaNYL PF 100 MCG/2 ML VIAL IV PRN ×2 (15:00→21:00)
[2017-01-04] MEDS ORDERED: ASPIRIN 81 MG TAB.CHEW PO ONE (15:00)
--- NOTE | 2017-01-04 15:18 | RAD ---
Portable chest, 01/04/2017: History: Chest pain Comparison is made to a study from 12/01/2016. The heart size and pulmonary vascularity are normal. No pulmonary infiltrates are seen. There is no evidence of pleural fluid. IMPRESSION: No acute cardiopulmonary abnormality is detected.
[2017-01-04 15:22] LABS: BASO # 0.1 x10^3/uL (0.0-0.2); BASO % 1 % (0-3); EOS # 0.1 x10^3/uL (0.0-0.7); EOS % 1 % (0-3); HEMATOCRIT 39.1 % (39.0-53.0); HEMOGLOBIN 13.3 g/dL (13.0-17.5); LYMPH % 30 % (24-48); MEAN CORPUSCULAR HEMOGLOBIN 32 pg (25-35); MEAN CORPUSCULAR HGB CONC 34 g/dL (31-37); MEAN CORPUSCULAR VOLUME 93 fL (79-100); MONO # 0.6 x10^3/uL (0.0-1.1); MONO % 9 % (0-9); NEUT % 59 % (31-73); PLATELET COUNT 255 x10^3/uL (140-400); RED BLOOD COUNT 4.22 x10^6/uL (4.30-5.70); WHITE BLOOD COUNT 6.8 x10^3/uL (4.0-11.0)
[2017-01-04] MEDS: NITROGLYCERIN SUBLINGUAL 0.4 MG BOTTLE OF 25. SL PRN ×2 (15:33→20:34)
[2017-01-04 15:39] LABS: ALBUMIN 3.4 g/dL (3.4-5.0); ALBUMIN/GLOBULIN RATIO 0.9 (1.0-1.7); CALCIUM 8.6 mg/dL (8.5-10.1); GFR 77.3; POTASSIUM 3.6 mmol/L (3.5-5.1); TOTAL BILIRUBIN 0.5 mg/dL (0.2-1.0); TOTAL PROTEIN 7.3 g/dL (6.4-8.2)
[2017-01-04] MEDS ORDERED: CONTRAST GIVEN MC PRN (15:45)
[2017-01-04] MEDS ORDERED: IOHEXOL 300 MG/ML 75 ML VIAL. IV ONE (15:45)
[2017-01-04 15:50] LABS: AMPHETAMINE/METHAMPHETAMINE NEG (NEG); BARBITURATES NEG (NEG); BENZODIAZEPINES NEG (NEG); CANNABINOIDS NEG (NEG); COCAINE NEG (NEG); METHADONE NEG (NEG); OPIATES POS (NEG); PHENCYCLIDINE NEG (NEG)
[2017-01-04 16:03] LABS: BACTERIA,URINE 0 /HPF (0-FEW); BILIRUBIN,URINE NEG (NEG); CLARITY,URINE CLEAR; COLOR,URINE YELLOW; GLUCOSE,URINE NEG (NEG); NITRITE,URINE NEG (NEG); SQUAMOUS EPITHELIAL CELL,UR OCC /LPF; UROBILINOGEN,URINE 0.2 mg/dL (0.2 mg/dL); WBC,URINE OCC /HPF (0-4)
--- NOTE | 2017-01-04 16:18 | EKG ---
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
--- NOTE | 2017-01-04 16:24 | RAD ---
Bilateral lower extremity venous ultrasound, 01/04/2017: History: Bilateral leg swelling Duplex evaluation of the deep veins in the lower extremities was performed including grayscale, color-flow and spectral Doppler analysis. The femoral and popliteal veins demonstrate normal compressibility and normal responses to distal augmentation maneuvers. Color imaging of those vessels shows no evidence of intraluminal clot. The visualized deep veins in both calves are patent. A mildly prominent lymph node was identified at the right groin level. IMPRESSION: There is no sonographic evidence of deep vein thrombosis in either lower extremity.
--- NOTE | 2017-01-04 16:39 | RAD ---
CT angiogram of the chest Indication: Shortness of breath, chest pain. History of PE. Technique: CT angiogram of chest with 75 mL of Omnipaque 300 with sagittal and coronal MIP reformats. Comparison: Study from 12/01/2016 Findings: Diagnostic quality PE study. No evidence of filling defects in the central, segmental or subsegmental pulmonary arteries. Heart is slightly enlarged in size. No pericardial or pleural effusion. LAD stent noted. No axillary adenopathy. Slight interval increase in the size of right hilar lymph node measuring 2.8 x 1.4 cm, previously 2.2 x 1.1 cm. Prominent but not pathologically enlarged mediastinal lymph nodes. Left hilar lymph node measures 2.0 x 0.9 cm, previously 1.8 x 0.6 cm. 2 mm nodule seen in the left lung apex (series 4 image 17). 2 mm nodule in the right lung base (series 4 image 77). Paraseptal emphysema. Stable low attenuating lesion within right hepatic lobe likely cystic biliary hamartoma. Noncontrast appearance of the spleen, pancreas, adrenals and right kidney within normal limits. Partially visualized simple appearing cyst within left kidney. Status post cholecystectomy. Small sliding hiatal hernia. Impression: 1. No PE. 2. Stable left lung apex and right lung base 2 mm nodules, nonspecific likely benign. 3. Slight interval increase in the size of bilateral hilar lymph nodes may be reactive. PQRS Compliance Statement: One or more of the following individualized dose reduction techniques were utilized for this examination: 1. Automated exposure control 2. Adjustment of the mA and/or kV according to patient size 3. Use of iterative reconstruction technique
[2017-01-04] MEDS ORDERED: ONDANSETRON PF 4 MG/2 ML VIAL. IV PRN (18:30)
--- NOTE | 2017-01-04 19:30 | ED.ADGEN ---
Past History Past Medical History: Hip Fracture, Hypertension Past Surgical History: Appendectomy, Colectomy, Hip Replacement Smoking: Cigarettes, Greater than 1 pack/day Additional Smoking Information: 1 PACK DAILY Alcohol Use: None Drug Use: None Adult General HPI HPI Patient is a 56-year-old man, history of CAD status post placement of 2 stents 5 months ago, hypertension, hyperlipidemia, tobacco abuse, on chronic ankle anticoagulation due to history of DVT and PE, who presents to the emergency department with a complaint of chest pain. Patient states he first no chest pain this morning around 10:00 morning, states he was ambulating, when he began experiencing a chest pressure radiating into his left shoulder, with some shortness of breath. He states the pain became worse when he exerted himself walking faster, and began to feel lightheaded and experienced nausea. He denies any vomiting, any belching, any focal weakness, numbness or tingling, he states that he did have similar symptoms previously when his stents replaced. He denies missing any doses of medication, he does take a full aspirin in addition to Plavix and Coumadin, he states his last INR check his INR was 2.3 and this occurred several weeks ago. Patient denies recent travel or surgery, he states he has noted increased swelling in his left lower extremity which is new for him , he states that his right leg which has chronic pain due to trauma remains unchanged. He denies any recent travel, denies any sick contacts or exposures, any injuries. 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 Review of Systems Review of Systems Constitutional: Denies fever or chills [] Eyes: Denies change in visual acuity, redness, or eye pain [] HENT: Denies nasal congestion or sore throat [] Respiratory: Denies cough, complaining of shortness breath associated with chest pain. Cardiovascular: No additional information not addressed in HPI [] chest pain, radiating to the left shoulder. Worse with exertion. GI: Denies abdominal pain, nausea, vomiting, bloody stools or diarrhea [] : Denies dysuria or hematuria [] Musculoskeletal: Denies back pain or joint pain [] Integument: Denies rash or skin lesions [] Neurologic: Denies headache, focal weakness or sensory changes [] Endocrine: Denies polyuria or polydipsia [] Current Medications Current Medications Current Medications Medications (Trade) Dose Ordered Sig/[facility] Start Time Stop Time Status Last Admin Dose Admin Aspirin (Children'S Aspirin) 324 mg 1X ONCE 01/04/17 15:00 01/04/17 15:01 DC 01/04/17 15:00 324 MG Fentanyl Citrate (Fentanyl 2ml Vial) 25 mcg PRN Q15MIN PRN 01/04/17 15:00 01/05/17 14:59 01/04/17 15:33 25 MCG Info (Do NOT chart on this entry -- for MONITORING) 1 each PRN DAILY PRN 01/04/17 15:45 01/06/17 15:44 Iohexol (Omnipaque 300 Mg/ml) 75 ml 1X ONCE 01/04/17 15:45 01/04/17 15:46 DC 01/04/17 16:12 75 ML Nitroglycerin (Nitrostat) 0.4 mg PRN Q5MIN PRN 01/04/17 15:00 01/05/17 14:59 01/04/17 15:33 0.4 MG Allergies Allergies Allergies Coded Allergies Type Severity Reaction Last Updated Verified citalopram Allergy Unknown 12/01/16 Yes simvastatin Allergy Unknown 12/01/16 Yes Physical Exam Physical Exam Constitutional: Well developed, well nourished, no acute distress, non-toxic appearance. [] HENT: Normocephalic, atraumatic, bilateral external ears normal, oropharynx moist, no oral exudates, nose normal. [] Eyes: PERRLA, EOMI, conjunctiva normal, no discharge. [] Neck: Normal range of motion, no tenderness, supple, no stridor. [] Cardiovascular:Heart rate regular rhythm, no murmur , S1, S2, no rubs or gallops. No chest or crepitus or tenderness, unable to reproduce pain with palpation. Patient states pain is currently a 5 out of 10. [] Lungs & Thorax: Bilateral breath sounds clear to auscultation, no wheezing, rhonchi, rales. No chest or crepitus or tenderness. [] Abdomen: Bowel sounds normal, soft, no tenderness, no rebound, rigidity, no guarding, no masses, no pulsatile masses. [] Skin: Warm, dry, no erythema, no rash. [] Back: No tenderness, no CVA tenderness. [] Extremities: No tenderness, no cyanosis, no clubbing, ROM intact, patient with mild swelling of the left lower extremity, 1+ pitting edema, with tenderness to palpation of the left calf. No cord or abnormality identified. Patient with well -healed surgical incision along the right hip. No tenderness to palpation, full range of motion with extremities. Normal pulses and sensation. Neurologic: Alert and oriented X 3, normal motor function, normal sensory function, no focal deficits noted. [] Psychologic: Affect normal, judgement normal, mood normal. [] Current Patient Data Vital Signs Vital Signs Date Time Temp Pulse Resp B/P (MAP) Pulse Ox O2 Delivery O2 Flow Rate FiO2 01/04/17 15:33 18 01/04/17 15:33 72 136/77 01/04/17 14:46 98.2 96 Room Air Lab Results Laboratory Tests Test 01/04/17 14:58 01/04/17 15:29 01/04/17 17:20 White Blood Count 6.8 x10^3/uL (4.0-11.0) Red Blood Count 4.22 x10^6/uL (4.30-5.70) L Hemoglobin 13.3 g/dL (13.0-17.5) Hematocrit 39.1 % (39.0-53.0) Mean Corpuscular Volume 93 fL (79-100) Mean Corpuscular Hemoglobin 32 pg (25-35) Mean Corpuscular Hemoglobin Concent 34 g/dL (31-37) Red Cell Distribution Width 14.0 % (11.5-14.5) Platelet Count 255 x10^3/uL (140-400) Neutrophils (%) (Auto) 59 % (31-73) Lymphocytes (%) (Auto) 30 % (24-48) Monocytes (%) (Auto) 9 % (0-9) Eosinophils (%) (Auto) 1 % (0-3) Basophils (%) (Auto) 1 % (0-3) Neutrophils # (Auto) 4.0 x10^3uL (1.8-7.7) Lymphocytes # (Auto) 2.0 x10^3/uL (1.0-4.8) Monocytes # (Auto) 0.6 x10^3/uL (0.0-1.1) Eosinophils # (Auto) 0.1 x10^3/uL (0.0-0.7) Basophils # (Auto) 0.1 x10^3/uL (0.0-0.2) Sodium Level 137 mmol/L (136-145) Potassium Level 3.6 mmol/L (3.5-5.1) Chloride Level 103 mmol/L (98-107) Carbon Dioxide Level 28 mmol/L (21-32) Anion Gap 6 (6-14) Blood Urea Nitrogen 9 mg/dL (8-26) Creatinine 1.0 mg/dL (0.7-1.3) Estimated GFR (Cockcroft-Gault) 77.3 BUN/Creatinine Ratio 9 (6-20) Glucose Level 91 mg/dL (70-99) Calcium Level 8.6 mg/dL (8.5-10.1) Total Bilirubin 0.5 mg/dL (0.2-1.0) Aspartate Amino Transferase (AST) 17 U/L (15-37) Alanine Aminotransferase (ALT) 17 U/L (16-63) Alkaline Phosphatase 77 U/L (46-116) Troponin I Quantitative < 0.017 ng/mL (0-0.055) JG-Ltm-F-Type Natriuretic Peptide 30 pg/mL (0-124) Total Protein 7.3 g/dL (6.4-8.2) Albumin 3.4 g/dL (3.4-5.0) Albumin/Globulin Ratio 0.9 (1.0-1.7) L Lipase 114 U/L (73-393) Urine Collection Type Unknown Urine Color Yellow Urine Clarity Clear Urine pH 6.0 Urine Specific [place] <=1.005 Urine Protein Neg (NEG-TRACE) Urine Glucose (UA) Neg mg/dL (NEG) Urine Ketones (Stick) Neg mg/dL (NEG) Urine Blood Small (NEG) Urine Nitrite Neg (NEG) Urine Bilirubin Neg (NEG) Urine Urobilinogen Dipstick 0.2 mg/dL (0.2 mg/dL) Urine Leukocyte Esterase Neg (NEG) Urine RBC 1-2 /HPF (0-2) Urine WBC Occ /HPF (0-4) Urine Squamous Epithelial Cells Occ /LPF Urine Bacteria 0 /HPF (0-FEW) Urine Opiates Screen Pos (NEG) Urine Methadone Screen Neg (NEG) Urine Barbiturates Neg (NEG) Urine Phencyclidine Screen Neg (NEG) Urine Amphetamine/Methamphetamine Neg (NEG) Urine Benzodiazepines Screen Neg (NEG) Urine Cocaine Screen Neg (NEG) Urine Cannabinoids Screen Neg (NEG) Urine Ethyl Alcohol Neg (NEG) Prothrombin Time 17.2 SEC (9.4-11.4) H Prothrombin Time INR 1.7 (0.9-1.1) H PTT 45 SEC (23-33) H EKG EKG [] Radiology/Procedures Radiology/Procedures [][place] [address] IMAGING REPORT Signed PATIENT: LAKHWINDER VENTURA ACCOUNT: [id number] : 1960 LOCATION: ER AGE: 56 SEX: M EXAM STATUS: PRE ER ORD. PHYSICIAN: ALAN BARRETT DO REASON: CP PROCEDURE: PORTABLE CHEST 1V Portable chest, 01/04/2017: History: Chest pain Comparison is made to a study from 12/01/2016. The heart size and pulmonary vascularity are normal. No pulmonary infiltrates are seen. There is no evidence of pleural fluid. IMPRESSION: No acute cardiopulmonary abnormality is detected. DICTATED AND SIGNED BY: RADHA ESCOBEDO MD DATE: 01/04/17 9495 CC: ALAN BARRETT DO; PCP,NO ~ Impressions: [address] [address] IMAGING REPORT Signed PATIENT: LAKHWINDER VENTURA ACCOUNT: [id number] : 1960 LOCATION: ER AGE: 56 SEX: M EXAM STATUS: REG ER ORD. PHYSICIAN: ALAN BARRETT DO REASON: CP/SOB, hx PE PROCEDURE: CT ANGIOGRAPHY CHEST CT angiogram of the chest Indication: Shortness of breath, chest pain. History of PE. Technique: CT angiogram of chest with 75 mL of Omnipaque 300 with sagittal and coronal MIP reformats. Comparison: Study from 12/01/2016 Findings: Diagnostic quality PE study. No evidence of filling defects in the central, segmental or subsegmental pulmonary arteries. Heart is slightly enlarged in size. No pericardial or pleural effusion. LAD stent noted. No axillary adenopathy. Slight interval increase in the size of right hilar lymph node measuring 2.8 x 1.4 cm, previously 2.2 x 1.1 cm. Prominent but not pathologically enlarged mediastinal lymph nodes. Left hilar lymph node measures 2.0 x 0.9 cm, previously 1.8 x 0.6 cm. 2 mm nodule seen in the left lung apex (series 4 image 17). 2 mm nodule in the right lung base (series 4 image 77). Paraseptal emphysema. Stable low attenuating lesion within right hepatic lobe likely cystic biliary hamartoma. Noncontrast appearance of the spleen, pancreas, adrenals and right kidney within normal limits. Partially visualized simple appearing cyst within left kidney. Status post cholecystectomy. Small sliding hiatal hernia. Impression: 1. No PE. 2. Stable left lung apex and right lung base 2 mm nodules, nonspecific likely benign. 3. Slight interval increase in the size of bilateral hilar lymph nodes may be reactive. PQRS Compliance Statement: One or more of the following individualized dose reduction techniques were utilized for this examination: 1. Automated exposure control 2. Adjustment of the mA and/or kV according to patient size 3. Use of iterative reconstruction technique DICTATED AND SIGNED BY: SELVIN JOSUE DATE: 01/04/171626 CC: ALAN BARRETT DO; PCP,NO ~ [place] [id number] IMAGING REPORT Signed PATIENT: LAKHWINDER VENTURA ACCOUNT: [id number] : 1960 LOCATION: ER AGE: 56 SEX: M EXAM STATUS: REG ER ORD. PHYSICIAN: ALAN BARRETT DO REASON: leg swelling/pain hx of DVT PROCEDURE: VENOUS LOWER EXT BILATERAL Bilateral lower extremity venous ultrasound, 01/04/2017: History: Bilateral leg swelling Duplex evaluation of the deep veins in the lower extremities was performed including grayscale, color-flow and spectral Doppler analysis. The femoral and popliteal veins demonstrate normal compressibility and normal responses to distal augmentation maneuvers. Color imaging of those vessels shows no evidence of intraluminal clot. The visualized deep veins in both calves are patent. A mildly prominent lymph node was identified at the right groin level. IMPRESSION: There is no sonographic evidence of deep vein thrombosis in either lower extremity. DICTATED AND SIGNED BY: RADHA ESCOBEDO MD DATE: 01/04/17 5806 CC: ALAN BARRETT DO; PCP,NO ~ Course & Med Decision Making Course & Med Decision Making Pertinent Labs and Imaging studies reviewed. (See chart for details) Due to patient's history of DVT and PE, and complaints of chest pain, leg swelling and shortness of breath, patient received duplex ultrasound of bilateral lower extremities which were negative, and also CT PE protocol the chest did not reveal any evidence of a PE. Initial troponin was negative and the emergency department. Patient did receive fentanyl and nitroglycerin, he had taken nitroglycerin at home previously without improvement, he was feeling some better on reevaluation, although he still having intermittent chest pain. I did discuss findings with patient, he is relieved to know that he does not have a PE. Patient with INR 1.7. I did discuss findings as above with Dr. 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 He recommends admission to [facility] for continued monitoring and serial enzymes. I did discuss this with the patient and patient's at bedside, they're agreeable with this plan. Patient is resting more comfortably at this time, vital signs remained stable in the ED. I did speak with Dr. Domínguez, internal medicine physician on-call, patient was accepted to her service as a full admission to the telemetry floor, with consultation with cardiology, serial enzymes, and bridge orders per discussion. Patient transferred to EMS for transfer to the main hospital without issue. Final Impression Final Impression [] Problems: Dragon Disclaimer Dragon Disclaimer This electronic medical record was generated, in whole or in part, using a voice recognition dictation system. Departure: Impression: Primary Impression: Chest pain Additional Impression: Subtherapeutic international normalized ratio (INR) Disposition: 09 ADMITTED INPATIENT Condition: IMPROVED ALAN BARRETT DO Jan 04, 2017 19:30
[2017-01-04 19:42] VITALS: BP 120/82
[2017-01-04] MEDS ORDERED: CETI10CA PO (20:14)
[2017-01-04] MEDS ORDERED: FISH12002 PO (20:18)
[2017-01-04] MEDS ORDERED: LISI-338 PO (20:18)
[2017-01-04] MEDS ORDERED: ISOS30TA4 PO (20:18)
[2017-01-04] MEDS ORDERED: CLOP75TA57 PO (20:18)
[2017-01-04] MEDS ORDERED: PANT40TA3 PO (20:18)
[2017-01-04] MEDS ORDERED: ASPI-630 PO (20:18)
[2017-01-04] MEDS ORDERED: DULO20CA50 PO (20:18)
[2017-01-04] MEDS ORDERED: NITROGLYCERIN SUBLINGUAL 0.4 MG BOTTLE OF 25. SL PRN (20:45)
[2017-01-04] MEDS ORDERED: DULoxetine HCL 60 MG CAPSULE.DR PO SCH (21:00)
[2017-01-04] MEDS ORDERED: WARFARIN 10 MG TABLET. PO ONE (21:00)
[2017-01-04] MEDS ORDERED: OMEGA-3 FATTY ACIDS/FISH OIL 1,000 MG CAPSULE. PO SCH (21:00)
[2017-01-04] MEDS ORDERED: ISOSORBIDE MONONITRATE ER 30 MG TAB.ER.24H PO SCH (21:00)
[2017-01-04] MEDS ORDERED: PANTOPRAZOLE 40 MG TABLET. PO SCH (21:00)
--- NOTE | 2017-01-04 21:20 | EKG ---
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
[2017-01-04 22:19] VITALS: BP 120/82
[2017-01-04 23:00] VITALS: BP 121/74
[2017-01-05 05:17] VITALS: BP 117/72
[2017-01-05 06:59] LABS: BASO % 1 % (0-3); EOS # 0.1 x10^3/uL (0.0-0.7); EOS % 2 % (0-3); HEMATOCRIT 38.5 % (39.0-53.0); HEMOGLOBIN 12.9 g/dL (13.0-17.5); LYMPH # 1.3 x10^3/uL (1.0-4.8); LYMPH % 24 % (24-48); MEAN CORPUSCULAR HEMOGLOBIN 31 pg (25-35); MEAN CORPUSCULAR HGB CONC 34 g/dL (31-37); MEAN CORPUSCULAR VOLUME 93 fL (79-100); MONO # 0.4 x10^3/uL (0.0-1.1); MONO % 8 % (0-9); NEUT # 3.4 x10^3uL (1.8-7.7); NEUT % 66 % (31-73); PLATELET COUNT 259 x10^3/uL (140-400); RED BLOOD COUNT 4.17 x10^6/uL (4.30-5.70); RED CELL DISTRIBUTION WIDTH 14.3 % (11.5-14.5); WHITE BLOOD COUNT 5.2 x10^3/uL (4.0-11.0)
[2017-01-05 07:09] LABS: ALBUMIN/GLOBULIN RATIO 0.8 (1.0-1.7); CALCIUM 8.5 mg/dL (8.5-10.1); CREATININE 0.9 mg/dL (0.7-1.3); GFR 87.3; POTASSIUM 4.1 mmol/L (3.5-5.1); TOTAL BILIRUBIN 0.4 mg/dL (0.2-1.0); TOTAL PROTEIN 6.7 g/dL (6.4-8.2)
[2017-01-05 07:25] LABS: CREATINE KINASE 113 U/L (39-308)
[2017-01-05] MEDS ORDERED: ISOSORBIDE MONONITRATE ER 30 MG TAB.ER.24H PO SCH ×3 (09:00→21:00)
[2017-01-05] MEDS ORDERED: LISINOPRIL 5 MG TABLET. PO SCH (09:00)
[2017-01-05] MEDS ORDERED: CETIRIZINE HCL 10 MG TABLET PO SCH (09:00)
[2017-01-05] MEDS ORDERED: CLOPIDOGREL BISULFATE 75 MG TABLET PO SCH (09:00)
[2017-01-05] MEDS ORDERED: ASPIRIN 81 MG TAB.CHEW PO SCH (09:00)
--- NOTE | 2017-01-05 10:05 | PDOC2 ---
JENNIFER VICENTE CLINICAL APPLICATION MANAGER 01/05/17 1005: CONSULT Date of Admission DATE: 01/05/17 TIME: 09:58 Reason for Consult: chest pain Problem List Problems Medical Problems: (1) ACS (acute coronary syndrome) Status: Acute (2) Subtherapeutic international normalized ratio (INR) Status: Acute History of Present Illness Mr Irvin is a 56 year old male with history of PCI/NILS to proximal LAD in early August who presents to the ED with complaints of chest pain, which started yesterday and lasted 2.5 hours. He reports pain again localized to left sternal border denies radiation or associated symptoms. He reports it was worse with exertion and that it made him nervous so he presented for evaluation. He was seen in November for similar symptoms and planned to start on oral nitrates with possible outpatient MPI if recurrence of pain. He reports that on going home he realized that he has already been taking oral nitrates and so there was no change in his medial therapy. He reports being pain free at this time. Past Medical History Past Medical History Cardiac cath in early August of this year with single vessel coronary disease, s/ p PCI with NILS to proximal LAD. Repeat cath for chest pain in mid August with open stent and no other significant disease. Echo with normal LV function in Jun of this year MPI with normal perfusion in July of this year. Cardiovascular: hyperipidemia, Other (PSVT) Pulmonary: Pulmonary embolus, Other (DVT) Psych: Anxiety Musculoskeletal: Osteoarthritis, Other (right sided foot drop, chronic pain from right hip) Past Surgical History multiple hip surgeries, cholecystectomy Family History Hypertension Social History smoker, no illicit drugs, no significant ETOH Current Medications Current Medications Aspirin (Children'S Aspirin) 324 mg 1X ONCE PO Last administered on 01/04/17 15:00; Start 01/04/17 at 15:00; Stop 01/04/17 at 15:01; Status DC Nitroglycerin (Nitrostat) 0.4 mg PRN Q5MIN PRN SL CP RATING > 1/10 Last administered on 01/04/17 20:34; Start 01/04/17 at 15:00; Stop 01/04/17 at 20:50 ; Status DC Fentanyl Citrate (Fentanyl 2ml Vial) 25 mcg PRN Q15MIN PRN IV PAIN GREATER THAN 3/10 Last administered on 01/04/17 15:33; Start 01/04/17 at 15:00; Stop at 20:35; Status DC Iohexol (Omnipaque 300 Mg/ml) 75 ml 1X ONCE IV Last administered on 01/04/17 16:12; Start 01/04/17 at 15:45; Stop 01/04/17 at 15:46; Status DC Info (Do NOT chart on this entry -- for MONITORING) 1 each PRN DAILY PRN MC SEE COMMENTS; Start 01/04/17 at 15:45; Stop 01/06/17 at 15:44 Ondansetron HCl (Zofran) 4 mg PRN Q8HRS PRN IV NAUSEA/VOMITING; Start 01/04/17 at 18:30 Warfarin Sodium (Coumadin Per Pharmacy) 1 each PRN DAILY PRN MC SEE COMMENTS Last administered on 01/04/17 21:13; Start 01/04/17 at 20:30 Fentanyl Citrate (Fentanyl 2ml Vial) 25 mcg PRN Q3HRS PRN IV PAIN GREATER THAN 3/10; Start 01/04/17 at 21:00; Stop 01/07/17 at 20:59 Aspirin (Children'S Aspirin) 81 mg DAILY PO Last administered on 01/05/17 08: 25; Start 01/05/17 at 09:00 Clopidogrel Bisulfate (Plavix) 75 mg DAILY PO Last administered on 01/05/17 08 :24; Start 01/05/17 at 09:00 Duloxetine HCl (Cymbalta) 60 mg QHS PO Last administered on 01/04/17 21:43; Start 01/04/17 at 21:00 Isosorbide Mononitrate (Imdur) 30 mg DAILY PO ; Start 01/05/17 at 09:00; Status Cancel Isosorbide Mononitrate (Imdur) 30 mg QHS PO Last administered on 01/04/17 21: 44; Start 01/04/17 at 21:00; Stop 01/05/17 at 09:52; Status DC Lisinopril (Prinivil) 5 mg DAILY PO Last administered on 01/05/17 08:24; Start 01/05/17 at 09:00 Nitroglycerin (Nitrostat) 0.4 mg PRN Q10MIN PRN SL CHEST PAIN; Start 01/04/17 at 20:45 Pantoprazole Sodium (Protonix) 40 mg QHS PO Last administered on 01/04/17 21: 43; Start 01/04/17 at 21:00 Cetirizine HCl (ZyrTEC) 10 mg DAILY PO Last administered on 01/05/17 08:24; Start 01/05/17 at 09:00 Fish Oil (Fish Oil) 1,000 mg HS PO Last administered on 01/04/17 21:43; Start 01/04/17 at 21:00 Warfarin Sodium (Coumadin) 10 mg 1X WARF ONCE PO Last administered on 21:43; Start 01/04/17 at 21:00; Stop 01/04/17 at 21:01; Status DC Isosorbide Mononitrate (Imdur) 60 mg DAILY PO ; Start 01/05/17 at 10:00 Active Scripts Active NITROGLYCERIN SubLingual (Nitroglycerin) 0.4 Mg Tab.subl 1 Tab SL UD Isosorbide Mononitrate Er (Isosorbide Mononitrate) 30 Mg Tab.er.24h 1 Tab PO DAILY Reported Protonix (Pantoprazole Sodium) 40 Mg Tablet.dr 1 Tab PO QHS Cymbalta (Duloxetine Hcl) 20 Mg Capsule.dr 3 Cap PO QHS Isosorbide Mononitrate Er (Isosorbide Mononitrate) 30 Mg Tab.er.24h 1 Tab PO QHS Chicken 3-6-9 1,200 mg Softgel (Fish Oil/Borage/Flax/Om3,6,9#1) 1,200 Mg Capsule 1 ,000 Mg PO QHS Lisinopril 5 Mg Tablet 1 Tab PO DAILY Aspirin 81 Mg Tab.chew 81 Mg PO DAILY Plavix (Clopidogrel Bisulfate) 75 Mg Tablet 75 Mg PO DAILY Zyrtec (Cetirizine Hcl) 10 Mg Capsule 10 Mg PO DAILY Allergies: Coded Allergies: citalopram (Verified Allergy, Unknown, 12/01/16) simvastatin (Verified Allergy, Unknown, 12/01/16) Review of System as per HPI or negative General: Alert, Oriented X3, Cooperative, No acute distress HEENT: Atraumatic, EOMI Lungs: Clear to auscultation, Normal air movement Heart: Regular rate, Normal S1, Normal S2 Abdomen: Normal bowel sounds, Soft Extremities: No cyanosis, No edema, Normal pulses Neuro: Normal speech, Strength at 5/5 X4 ext Psych/Mental Status: Mental status NL, Other (anxious) VITALS Vital Signs Date Time Temp Pulse Resp B/P (MAP) Pulse Ox O2 Delivery O2 Flow Rate FiO2 01/05/17 08:30 Room Air 01/05/17 08:24 72 117/72 01/05/17 05:17 97.6 18 94 Labs Laboratory Tests Test 01/04/17 14:58 01/04/17 15:29 01/04/17 17:20 01/04/17 21:10 White Blood Count 6.8 x10^3/uL (4.0-11.0) Red Blood Count 4.22 x10^6/uL (4.30-5.70) Hemoglobin 13.3 g/dL (13.0-17.5) Hematocrit 39.1 % (39.0-53.0) Mean Corpuscular Volume 93 fL (79-100) Mean Corpuscular Hemoglobin 32 pg (25-35) Mean Corpuscular Hemoglobin Concent 34 g/dL (31-37) Red Cell Distribution Width 14.0 % (11.5-14.5) Platelet Count 255 x10^3/uL (140-400) Neutrophils (%) (Auto) 59 % (31-73) Lymphocytes (%) (Auto) 30 % (24-48) Monocytes (%) (Auto) 9 % (0-9) Eosinophils (%) (Auto) 1 % (0-3) Basophils (%) (Auto) 1 % (0-3) Neutrophils # (Auto) 4.0 x10^3uL (1.8-7.7) Lymphocytes # (Auto) 2.0 x10^3/uL (1.0-4.8) Monocytes # (Auto) 0.6 x10^3/uL (0.0-1.1) Eosinophils # (Auto) 0.1 x10^3/uL (0.0-0.7) Basophils # (Auto) 0.1 x10^3/uL (0.0-0.2) Sodium Level 137 mmol/L (136-145) Potassium Level 3.6 mmol/L (3.5-5.1) Chloride Level 103 mmol/L (98-107) Carbon Dioxide Level 28 mmol/L (21-32) Anion Gap 6 (6-14) Blood Urea Nitrogen 9 mg/dL (8-26) Creatinine 1.0 mg/dL (0.7-1.3) Estimated GFR (Cockcroft-Gault) 77.3 BUN/Creatinine Ratio 9 (6-20) Glucose Level 91 mg/dL (70-99) Calcium Level 8.6 mg/dL (8.5-10.1) Total Bilirubin 0.5 mg/dL (0.2-1.0) Aspartate Amino Transf (AST/SGOT) 17 U/L (15-37) Alanine Aminotransferase (ALT/SGPT) 17 U/L (16-63) Alkaline Phosphatase 77 U/L (46-116) Troponin I Quantitative < 0.017 ng/mL (0-0.055) < 0.017 ng/mL (0-0.055) CD-Pbo-X-Type Natriuretic Peptide 30 pg/mL (0-124) Total Protein 7.3 g/dL (6.4-8.2) Albumin 3.4 g/dL (3.4-5.0) Albumin/Globulin Ratio 0.9 (1.0-1.7) Lipase 114 U/L (73-393) Urine Collection Type Unknown Urine Color Yellow Urine Clarity Clear Urine pH 6.0 Urine Specific [place] <=1.005 Urine Protein Neg (NEG-TRACE) Urine Glucose (UA) Neg mg/dL (NEG) Urine Ketones (Stick) Neg mg/dL (NEG) Urine Blood Small (NEG) Urine Nitrite Neg (NEG) Urine Bilirubin Neg (NEG) Urine Urobilinogen Dipstick 0.2 mg/dL (0.2 mg/dL) Urine Leukocyte Esterase Neg (NEG) Urine RBC 1-2 /HPF (0-2) Urine WBC Occ /HPF (0-4) Urine Squamous Epithelial Cells Occ /LPF Urine Bacteria 0 /HPF (0-FEW) Urine Opiates Screen Pos (NEG) Urine Methadone Screen Neg (NEG) Urine Barbiturates Neg (NEG) Urine Phencyclidine Screen Neg (NEG) Urine Amphetamine/Methamphetamine Neg (NEG) Urine Benzodiazepines Screen Neg (NEG) Urine Cocaine Screen Neg (NEG) Urine Cannabinoids Screen Neg (NEG) Urine Ethyl Alcohol Neg (NEG) Prothrombin Time 17.2 SEC (9.4-11.4) Prothromb Time International Ratio 1.7 (0.9-1.1) Activated Partial Thromboplast Time 45 SEC (23-33) Creatine Kinase 150 U/L (39-308) Creatine Kinase MB (Mass) 0.7 ng/mL (0.0-3.6) Creatine Kinase MB Relative Index 0.5 % (0-4) Test 01/05/17 06:23 White Blood Count 5.2 x10^3/uL (4.0-11.0) Red Blood Count 4.17 x10^6/uL (4.30-5.70) Hemoglobin 12.9 g/dL (13.0-17.5) Hematocrit 38.5 % (39.0-53.0) Mean Corpuscular Volume 93 fL (79-100) Mean Corpuscular Hemoglobin 31 pg (25-35) Mean Corpuscular Hemoglobin Concent 34 g/dL (31-37) Red Cell Distribution Width 14.3 % (11.5-14.5) Platelet Count 259 x10^3/uL (140-400) Neutrophils (%) (Auto) 66 % (31-73) Lymphocytes (%) (Auto) 24 % (24-48) Monocytes (%) (Auto) 8 % (0-9) Eosinophils (%) (Auto) 2 % (0-3) Basophils (%) (Auto) 1 % (0-3) Neutrophils # (Auto) 3.4 x10^3uL (1.8-7.7) Lymphocytes # (Auto) 1.3 x10^3/uL (1.0-4.8) Monocytes # (Auto) 0.4 x10^3/uL (0.0-1.1) Eosinophils # (Auto) 0.1 x10^3/uL (0.0-0.7) Basophils # (Auto) 0.0 x10^3/uL (0.0-0.2) Prothrombin Time 17.7 SEC (9.4-11.4) Prothromb Time International Ratio 1.7 (0.9-1.1) Sodium Level 138 mmol/L (136-145) Potassium Level 4.1 mmol/L (3.5-5.1) Chloride Level 106 mmol/L (98-107) Carbon Dioxide Level 28 mmol/L (21-32) Anion Gap 4 (6-14) Blood Urea Nitrogen 10 mg/dL (8-26) Creatinine 0.9 mg/dL (0.7-1.3) Estimated GFR (Cockcroft-Gault) 87.3 BUN/Creatinine Ratio 11 (6-20) Glucose Level 101 mg/dL (70-99) Calcium Level 8.5 mg/dL (8.5-10.1) Magnesium Level 2.0 mg/dL (1.8-2.4) Total Bilirubin 0.4 mg/dL (0.2-1.0) Aspartate Amino Transf (AST/SGOT) 14 U/L (15-37) Alanine Aminotransferase (ALT/SGPT) 16 U/L (16-63) Alkaline Phosphatase 72 U/L (46-116) Creatine Kinase 113 U/L (39-308) Creatine Kinase MB (Mass) < 0.5 ng/mL (0.0-3.6) Creatine Kinase MB Relative Index 0.4 % (0-4) Troponin I Quantitative < 0.017 ng/mL (0-0.055) Total Protein 6.7 g/dL (6.4-8.2) Albumin 3.0 g/dL (3.4-5.0) Albumin/Globulin Ratio 0.8 (1.0-1.7) Images EKG - sinus rhythm without acute abnormalities Assessment/Plan 1. Chest pain - [place] ruled out. Increase Imdur and consider outpatient MPI. 2. CAD sp PCI stenting early this year (after a negative stress test) with repeat cath in August showing patent stents and no significant lesions. 3. HTN - controlled 4. HLD - continue statin 5. anxiety Problems: DANTE HAYES MD 01/05/17 1636: CONSULT Allergies: Coded Allergies: citalopram (Verified Allergy, Unknown, 12/01/16) simvastatin (Verified Allergy, Unknown, 12/01/16) Assessment/Plan Patient seen and examined. Agree with FINISHED [employer]'s assessment and plan Chest pain with mixed typical and atypical features. Myocardial infarction ruled out. Recent cardiac catheterization showed patent stent. Agree with increasing nitrates. We will consider CP referral as an outpatient. Thank you for your consultation. Problems: JENNIFER VICENTE APRN Jan 05, 2017 10:05 DANTE HAYES MD Jan 05, 2017 16:36
[2017-01-05 10:19] VITALS: BP 114/74
[2017-01-05] MEDS ORDERED: WARF7.5T48 PO (12:19)
[2017-01-05] MEDS ORDERED: ISOS30TA4 PO (12:19)
[2017-01-05] MEDS ORDERED: WARFARIN 10 MG TABLET. PO ONE (16:00)
--- NOTE | 2017-01-05 16:32 | SSS ---
ADMIT DATE: 01/05/2017 Admission was greater than 8 hours and less than 24. Admission discharge was done by myself. DISCHARGE DIAGNOSES: 1. Chest pain, myocardial infarction ruled out, angina equivalent. 2. Coronary artery disease status post stenting, negative stress test. 3. Hypertension, controlled. 4. Hyperlipidemia. 5. Anxiety. 6. Long-term use of anticoagulants. 7. Subtherapeutic INR. The patient states was 2.1 earlier in the week. BRIEF HOSPITAL COURSE: Please see cardiology consult for further information. This is a 56-year-old male with a history of coronary artery disease with stent placement to the proximal LAD in August 2016. He has had multiple trips to the hospital for ongoing chest pain. He was last admitted on 12/01/2016 for chest pain. His GA was ruled out and his Imdur was increased by Cardiology. Dr. Hinson recommended that he have outpatient MPI treatment. PHYSICAL EXAMINATION: VITAL SIGNS: 114/74, pulse 70, respirations 20, temperature 97.6, pulse ox 95% on room air. Height 76 inches, weight 255.74 pounds. NECK: Supple. Tongue was moist. Throat was clear. LUNGS: Clear. CARDIOVASCULAR: Regular rhythm and rate. ABDOMEN: Soft, nontender. EXTREMITIES: With mild ankle edema. LABORATORY DATA: Reviewed. Troponins negative. Initial albumin normal on admission. Urinalysis and drugs screen positive for opiates; however, he received fentanyl in the Emergency Room. DISPOSITION: To home. Imdur increased, med recs to discharge instructions regarding the Coumadin. He is to have it checked again next week. He did receive 10 mg yesterday, but his earlier in the week per him his INR was 2.1, so reluctant to increase it to 10 mg, so he is to have it checked next week. He is to follow up with Dr. Hinson. TIMBO ZUNIGA DO DR: HEATHER/marcelino JOB#: [id number] / [id number]
== END 2017-01-05 12:57 | disposition home or self-care (01) ==
LOC: ER 14:46 → 1 SOUTH 17:37 → INTOOBSV 17:37
PROVIDERS: ADMIT Family Medicine; ATTEND Family Medicine
DX: R07.2 Precordial pain (principal); I25.10 Atherosclerotic heart disease of native coronary artery without angina pectoris; E78.5 Hyperlipidemia, unspecified; I10 Essential (primary) hypertension; F41.9 Anxiety disorder, unspecified; R79.1 Abnormal coagulation profile; I24.9 Acute ischemic heart disease, unspecified; G89.29 Other chronic pain; M19.90 Unspecified osteoarthritis, unspecified site; F17.210 Nicotine dependence, cigarettes, uncomplicated; Z86.711 Personal history of pulmonary embolism; Z86.718 Personal history of other venous thrombosis and embolism; Z90.49 Acquired absence of other specified parts of digestive tract; Z79.01 Long term (current) use of anticoagulants; Z82.49 Family history of ischemic heart disease and other diseases of the circulatory system; Z95.5 Presence of coronary angioplasty implant and graft; Z96.649 Presence of unspecified artificial hip joint
CPT/HCPCS: 36415; 71010; 71275; 80053; 80061; 80307; 81001; 82553; 83690; 83735; 83880; 84484; 85025; 85610; 85730; 93005; 93970; 96374; G0378; G0379; J3010; Q9967; 99285-25; G0479

== ENCOUNTER 2017-06-24 09:49 | Emergency (ER) | payer MEDICARE, OTHER ==
[~2017-06-24] VITALS: Ht 193 cm; Wt 116.0 kg
[~2017-06-24 09:49] MED LIST changes: +ASPI-630 PO; +CETI10CA PO; +CLOP75TA57 PO; +DULO20CA50 PO; +FISH12002 PO; +LISI-338 PO; +PANT40TA3 PO
[2017-06-24 10:37] LABS: FECAL OB PT NEGATIVE (NEG)
--- NOTE | 2017-06-24 11:00 | PHYS DOC ---
Past History Past Medical History: CAD, Depression, GI Bleed, High Cholesterol, Hip Fracture , Hypertension Additional Past Medical Histor: DVT and PE Past Surgical History: Appendectomy, Colectomy, Hip Replacement, Other Smoking: Cigarettes, Greater than 1 pack/day Alcohol Use: None Drug Use: None Adult General Chief Complaint Chief Complaint: tasting blood in mouth HPI HPI 57-year-old male patient with history of coronary artery disease, hypertension, anxiety, and Librium presented on Plavix and Coumadin and aspirin state he had bloody vomiting while he was in vacation in [place] and was admitted at Hospital with unremarkable labs and EGD. Patient states for the last few days he has tasting blood in his mouth and since yesterday had 3 episodes of bowel movement that had darker color than his usual without having black stools. Patient states he is without dark colored material this morning without obvious blood or coffee-ground material and has a concern for possible GI bleeding. Patient states he had nausea and discomfort feeling in epigastric area that improved at arrival to ER. He denies chest pain, shortness of breath, dizziness and generalized weakness, fever and chills. Patient complaining of chronic cough without hemoptysis. Review of Systems Review of Systems Constitutional: Denies fever or chills [] Eyes: Denies change in visual acuity, redness, or eye pain [] HENT: Denies nasal congestion or sore throat [] Respiratory: Denies cough or shortness of breath [] Cardiovascular: No additional information not addressed in HPI [] GI: Reports abdominal pain, nausea, dark stools , denies diarrhea [] : Denies dysuria or hematuria [] Musculoskeletal: Denies back pain or joint pain [] Integument: Denies rash or skin lesions [] Neurologic: Denies headache, focal weakness or sensory changes [] Endocrine: Denies polyuria or polydipsia [] All other systems were reviewed and found to be within normal limits, except as documented in this note. Allergies Allergies Allergies Coded Allergies Type Severity Reaction Last Updated Verified citalopram Allergy Unknown 12/01/16 Yes simvastatin Allergy Unknown 12/01/16 Yes Physical Exam Physical Exam Constitutional: Well developed, well nourished, no acute distress, non-toxic appearance, anxious. [] HENT: Normocephalic, atraumatic, bilateral external ears normal, oropharynx moist, no oral exudates, nose normal. [] Eyes: PERRLA, EOMI, conjunctiva normal, no discharge. [] Neck: Normal range of motion, no tenderness, supple, no stridor. [] Cardiovascular:Heart rate regular rhythm, no murmur [] Lungs & Thorax: Bilateral breath sounds clear to auscultation [] Abdomen: Bowel sounds normal, soft, no tenderness, no masses, no pulsatile masses. [] Skin: Warm, dry, no erythema, no rash. [] Back: No tenderness, no CVA tenderness. [] Extremities: No tenderness, no cyanosis, no clubbing, ROM intact, no edema. [] Neurologic: Alert and oriented X 3, normal motor function, normal sensory function, no focal deficits noted. [] Psychologic: Anxious, judgement normal, mood normal. [] Current Patient Data Vital Signs Vital Signs Date Time Temp Pulse Resp B/P (MAP) Pulse Ox O2 Delivery O2 Flow Rate FiO2 06/24/17 09:58 98.0 77 18 96 Room Air Lab Results Laboratory Tests Test 06/24/17 10:14 Stool Occult Blood Negative (NEG) EKG EKG [] Radiology/Procedures Radiology/Procedures [] Course & Med Decision Making Course & Med Decision Making Pertinent Labs reviewed. (See chart for details) Evaluation of patient in ER showed 57-year-old male patient with concern for possible GI bleed. Patient had unremarkable physical exam except for anxiety. Patient had negative stool occult blood and labs with INR of 2.7. Patient had dry heaves with clear mucousy vomiting as a chronic problem for several months. Patient treated with Zofran and felt better. Patient started to follow- up with his primary care physician for referral to GI specialist. Patient instructed to quit smoking. Dragon Disclaimer Dragon Disclaimer This electronic medical record was generated, in whole or in part, using a voice recognition dictation system. Departure Departure: Impression: Primary Impression: Feared condition not demonstrated Additional Impressions: Chronic nausea Tobacco abuse Tobacco abuse counseling Anxiety Disposition: HOME, SELF-CARE (At 1144) Condition: IMPROVED Referrals: PCP,NO (PCP) Patient Instructions: Nausea, Adult Additional Instructions: Quit smoking cigarettes Follow-up with your primary care physician in 3-5 days Return to ER if not getting better Scripts Ondansetron (ZOFRAN ODT) 4 Mg Tab.rapdis 1 TAB SL Q8HRS, #15 TAB Prov: TRACE MAHER MD 06/24/17 Problem Qualifiers TRACE MAHER MD Jun 24, 2017 11:00
[2017-06-24 11:13] LABS: BASO % 1 % (0-3); EOS # 0.1 x10^3/uL (0.0-0.7); EOS % 2 % (0-3); HEMOGLOBIN 14.6 g/dL (13.0-17.5); LYMPH # 1.8 x10^3/uL (1.0-4.8); LYMPH % 33 % (24-48); MEAN CORPUSCULAR HEMOGLOBIN 31 pg (25-35); MEAN CORPUSCULAR HGB CONC 34 g/dL (31-37); MEAN CORPUSCULAR VOLUME 91 fL (79-100); MONO # 0.4 x10^3/uL (0.0-1.1); MONO % 7 % (0-9); NEUT # 3.2 x10^3uL (1.8-7.7); NEUT % 58 % (31-73); PLATELET COUNT 267 x10^3/uL (140-400); RED BLOOD COUNT 4.71 x10^6/uL (4.30-5.70); RED CELL DISTRIBUTION WIDTH 13.4 % (11.5-14.5); WHITE BLOOD COUNT 5.5 x10^3/uL (4.0-11.0)
[2017-06-24 11:22] VITALS: BP 129/83
[2017-06-24 11:32] LABS: ALBUMIN 3.4 g/dL (3.4-5.0); ALBUMIN/GLOBULIN RATIO 0.8 (1.0-1.7); CALCIUM 8.7 mg/dL (8.5-10.1); CREATININE 0.9 mg/dL (0.7-1.3); TOTAL BILIRUBIN 0.4 mg/dL (0.2-1.0); TOTAL PROTEIN 7.5 g/dL (6.4-8.2)
[2017-06-24 11:34] LABS: POTASSIUM 4.4 mmol/L (3.5-5.1)
[2017-06-24] MEDS ORDERED: ONDANSETRON ODT 4 MG TAB.RAPDIS PO ONE (11:45)
[2017-06-24] MEDS ORDERED: ONDA4TAB10 SL (11:45)
== END 2017-06-24 12:20 | disposition home or self-care (01) ==
LOC: ER 09:49
DX: Z71.1 Person with feared health complaint in whom no diagnosis is made (principal); R10.13 Epigastric pain; R11.0 Nausea; F17.210 Nicotine dependence, cigarettes, uncomplicated; I25.10 Atherosclerotic heart disease of native coronary artery without angina pectoris; E78.00 Pure hypercholesterolemia, unspecified; I10 Essential (primary) hypertension; Z86.718 Personal history of other venous thrombosis and embolism; Z71.6 Tobacco abuse counseling; Z88.8 Allergy status to other drugs, medicaments and biological substances
CPT/HCPCS: 36415; 80053; 82274; 85025; 85610; 85730; 99284; Q0162

== ENCOUNTER → 2017-08-17 | Outpatient (CLI) | payer MEDICARE, OTHER ==
[~2017-08-17] MED LIST changes: +ONDA4TAB10 SL
--- NOTE | 2017-08-17 10:27 | RAD ---
DATE: 08/17/2017 EXAM: DIGITAL DIAGNOSTIC BILATERAL, BREAST LEFT HISTORY: Left breast lump COMPARISON: None available This study was interpreted with the benefit of Computerized Aided Detection (CAD). The breast parenchyma is primarily fatty replaced. Breast parenchyma level density A. FINDINGS: There is only a tiny amount of dense tissue in the retroareolar regions bilaterally in a symmetric pattern. The area of reported palpable concern in the left breast was marked with a BB. No underlying mass or other abnormality is seen. The underlying tissues at this level are of fatty density. Minimal benign type calcifications are present. No suspicious microcalcifications are seen. Left breast ultrasound, 08/17/2017: A targeted ultrasound exam of the left breast was performed in the area of palpable concern at the 9:00 location. At this level there is an oval-shaped subcutaneous nodule. Its margins are smooth and it demonstrates internal color flow. It is mildly heterogeneous and of slightly increased echogenicity relative to the adjacent subcutaneous fat. Correlation with the mammogram suggests that this is a fatty mass, presumably a lipoma. No other abnormality is seen in this region. IMPRESSION: 1. No mammographic abnormality is detected. 2. 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 Clinical surveillance is suggested to exclude malignant transformation. BI-RADS CATEGORY: 2 BENIGN FINDING(S) RECOMMENDED FOLLOW-UP: 12M 12 MONTH FOLLOW-UP PQRS compliance statement: Patient information was entered into a reminder system with a target due date for the next mammogram. Mammography is a sensitive method for finding small breast cancers, but it does not detect them all and is not a substitute for careful clinical examination. A negative mammogram does not negate a clinically suspicious finding and should not result in delay in biopsying a clinically suspicious abnormality. "Our facility is accredited by the [employer] Mammography Program."
== END | disposition home or self-care (01) ==
LOC: MAMMO 08:39
PROVIDERS: ATTEND Nurse Practitioner Acute Care
DX: N63.22 Unspecified lump in the left breast, upper inner quadrant (principal)
CPT/HCPCS: 76641; 77066

== ENCOUNTER 2017-09-11 23:11 | Emergency (ER) | payer MEDICARE, OTHER ==
[~2017-09-11] VITALS: Ht 193 cm; Wt 116.0 kg
--- NOTE | 2017-09-11 23:54 | PHYS DOC ---
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 Patient fell earlier and bruised his right buttock. It was sore but he was able to continue working and with his normal activities. While helping his 18-year-old son pushed her car he felt a sudden "pull" in his left calf area and it became swollen and very sore so he came to the emergency department for evaluation. Review of Systems Review of Systems Constitutional: Denies fever or chills [] Eyes: Denies change in visual acuity, redness, or eye pain [] HENT: Denies nasal congestion or sore throat [] Respiratory: Denies cough or shortness of breath [] Cardiovascular: No additional information not addressed in HPI [] GI: Denies abdominal pain, nausea, vomiting, bloody stools or diarrhea [] : Denies dysuria or hematuria [] Musculoskeletal: Denies back pain or joint pain [] Integument: Denies rash or skin lesions [] Neurologic: Denies headache, focal weakness or sensory changes [] Endocrine: Denies polyuria or polydipsia [] All other systems were reviewed and found to be within normal limits, except as documented in this note. Current Medications Current Medications Current Medications Medications (Trade) Dose Ordered Sig/[facility] Start Time Stop Time Status Last Admin Dose Admin Acetaminophen/ Hydrocodone Bitart (Lortab 5/325) 1 tab 1X ONCE 09/12/17 00:00 09/12/17 00:01 Allergies Allergies Allergies Coded Allergies Type Severity Reaction Last Updated Verified citalopram Allergy Unknown 12/01/16 Yes simvastatin Allergy Unknown 12/01/16 Yes Physical Exam Physical Exam Small area of bruising right buttock no hematoma area and minimal soft tissue swelling. No bony tenderness. Nontender stable pelvis. No pain with axial loading of his femur and normal painless range of motion of his right hip prosthesis. Left leg with soft tissue swelling and mild ecchymosis laterally mid leg but without cords warmth bony tenderness. Soft compartments. Normal range of motion of ankle in flexion and extension without difficulty. Constitutional: Well developed, well nourished, no acute distress, non-toxic appearance. [] HENT: Normocephalic, atraumatic, bilateral external ears normal, oropharynx moist, no oral exudates, nose normal. [] Eyes: EOMI, conjunctiva normal, no discharge. [] Neck: Normal range of motion, no tenderness, supple, no stridor. [] Cardiovascular: No tachycardia Lungs & Thorax: Normal respiratory rate with no asymmetry of the chest wall excursion and no increased work of breathing Abdomen: Nondistended abdomen Skin: Warm, dry, no erythema, no rash. [] Back: Normal supple appearing neck Extremities: no cyanosis, no clubbing, ROM intact, no edema. [] Neurologic: Alert and oriented X 3, normal motor function, normal sensory function, no focal deficits noted. [] Psychologic: Affect normal, judgement normal, mood normal. [] Current Patient Data Vital Signs Vital Signs Date Time Temp Pulse Resp B/P (MAP) Pulse Ox O2 Delivery O2 Flow Rate FiO2 09/11/17 23:15 98.4 98 20 98 Room Air EKG EKG [] Radiology/Procedures Radiology/Procedures [] Course & Med Decision Making Course & Med Decision Making Pertinent Labs and Imaging studies reviewed. (See chart for details) Signs and symptoms consistent with contusion right buttock area and x-rays pelvis and hip unremarkable. Findings consistent with strain of left calf muscle with swelling. INR therapeutic at 2.6. Ice packs applied analgesia administered. Patient stable and comfortable on reevaluation. No click or signs of compartment syndrome. No further workup or treatment indicated. Patient agrees that outpatient follow-up with his primary care doctor tomorrow and strict return precautions given [] Dragon Disclaimer Dragon Disclaimer This electronic medical record was generated, in whole or in part, using a voice recognition dictation system. Departure Departure: Impression: Primary Impression: Contusion of buttock Additional Impressions: Pain and swelling of left lower leg Strain of calf muscle Disposition: 01 HOME, SELF-CARE Condition: IMPROVED Referrals: PRIYANK MORILLO ZIPPER CUTTER (PCP) Patient Instructions: Contusions-SportsMed, Muscle Strain Additional Instructions: You've suffered a contusion, or bruise, to your right buttock area. The x-rays of your hip prosthesis and pelvis are unremarkable. If the area is sore use an ice pack over the next day. You have injured the muscle of your left leg and calf while straining to push a car earlier. This is resulted in swelling and pain. You have no abnormality or injury to the bones of that leg. Your INR was 2.6 which is appropriate and therapeutic for your anticoagulation status. Apply ice packs to your left leg, rest, and elevate above your heart whenever possible over the next 1-2 days. Take Tylenol with codeine and pill every 6 hours as needed for pain and follow-up with your doctor in 1-2 days and return immediately for new severe or worsening symptoms Problem Qualifiers LAZARO MORILLO MD September 11, 2017 23:54
[2017-09-12] MEDS ORDERED: HYDROcodone/APAP 5/325MG 1 TAB TABLET PO ONE
[2017-09-12] MEDS ORDERED: HYDROcodone/APAP 7.5/325MG 1 TAB TABLET PO ONE (00:30)
[2017-09-12 01:10] VITALS: BP 118/85
[2017-09-12] MEDS ORDERED: ACETAMINOPHEN/CODEINE 300/30MG 4TABLET STARTPACK. PO ONE (01:30)
--- NOTE | 2017-09-12 07:35 | RAD ---
Pelvis with right hip, 09/12/2017: HISTORY: Fall A right total hip prosthesis is in place. There are adjacent dystrophic soft tissue calcifications. No acute fracture or dislocation is identified. Deformity of the right iliac bone laterally is presumably due to old trauma and/or surgery. The left hip joint is well-maintained. IMPRESSION: 1. Postsurgical change as described above. 2. No acute bony abnormality is detected. Electronically signed by: Murphy Darby MD (09/12/2017 7:31 AM) [facility]
--- NOTE | 2017-09-12 07:36 | RAD ---
Left tibia and fibula, 2 views, 09/12/2017: HISTORY: Fall No acute fracture or dislocation is identified. The soft tissues are unremarkable. IMPRESSION: No acute bony abnormality is detected. Electronically signed by: Murphy Darby MD (09/12/2017 7:33 AM) [facility]
== END 2017-09-12 01:15 | disposition home or self-care (01) ==
LOC: ER 23:11
DX: S86.812A Strain of other muscle(s) and tendon(s) at lower leg level, left leg, initial encounter (principal); S30.0XXA Contusion of lower back and pelvis, initial encounter; S70.01XA Contusion of right hip, initial encounter; I25.10 Atherosclerotic heart disease of native coronary artery without angina pectoris; E78.00 Pure hypercholesterolemia, unspecified; I10 Essential (primary) hypertension; F32.9 Major depressive disorder, single episode, unspecified; F17.210 Nicotine dependence, cigarettes, uncomplicated; Z86.711 Personal history of pulmonary embolism; Z86.718 Personal history of other venous thrombosis and embolism; Z88.1 Allergy status to other antibiotic agents; Z88.8 Allergy status to other drugs, medicaments and biological substances; W19.XXXA Unspecified fall, initial encounter; Y93.89 Activity, other specified; Y99.8 Other external cause status; Y92.89 Other specified places as the place of occurrence of the external cause
CPT/HCPCS: 36415; 73502; 73590; 85610; 99285-25

== ENCOUNTER 2019-07-03 09:34 | Emergency (ER) | payer MEDICARE, OTHER ==
[~2019-07-03] VITALS: Ht 193 cm; Wt 118.0 kg
[~2019-07-03 09:34] MED LIST changes: -HYDR-2762 PO; +HYDR-2765 PO
--- NOTE | 2019-07-03 10:01 | PHYS DOC ---
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 Patient states that he is concerned that he is having some leaking from his artery because of the bruising and the pain. He does indicate that he is on what tenderness to include Coumadin, Plavix and aspirin. He rates pain as moderate.[] Review of Systems Review of Systems Constitutional: Denies fever or chills [] Respiratory: Denies cough or shortness of breath [] Cardiovascular: No additional information not addressed in HPI [] Musculoskeletal: Complains of right groin pain [] Integument: Denies rash or skin lesions [] Neurologic: Denies headache, focal weakness or sensory changes [] All other systems were reviewed and found to be within normal limits, except as documented in this note. Allergies Allergies Allergies Coded Allergies Type Severity Reaction Last Updated Verified citalopram Allergy Intermediate 09/12/17 Yes simvastatin Allergy Intermediate 09/12/17 Yes Physical Exam Physical Exam Constitutional: Well developed, well nourished, no acute distress, non-toxic appearance. [] HENT: Normocephalic, atraumatic, bilateral external ears normal, oropharynx moist, no oral exudates, nose normal. [] Eyes: PERRLA, EOMI, conjunctiva normal, no discharge. [] Neck: Normal range of motion, no tenderness, supple, no stridor. [] Cardiovascular: Regular rate and rhythm[] Lungs & Thorax: Bilateral breath sounds clear to auscultation [] Abdomen: Bowel sounds normal, soft, no tenderness. [] Skin: Warm, dry, no erythema, with small area of ecchymosis in right groin, surrounding needle insertion site. [] Extremities: No tenderness, no cyanosis, no clubbing, ROM intact, no edema. [] Neurologic: Alert and oriented X 3, no focal deficits noted. [] EKG EKG [] Radiology/Procedures Radiology/Procedures [] Impressions: PROCEDURE: EXTREM NONVASCULAR LTD RIGHT EXTREM NONVASCULAR LTD RIGHT History: Recent heart catheter. Right inguinal swelling. Comparison: None Technique: Sonographic examination of the right inguinal soft tissues. Findings: Rounded hypoechoic lesion with Doppler flow in the region of the patient's access site. Difficult to identify tract extending to the common femoral artery. The lesion appears within the subcutaneous tissues overlying the common femoral vessels. The lesion measures 1.4 x 0.8 x 1.1 cm. Additional hypoechoic region inferior to the above-mentioned lesion without Doppler flow, may represent hematoma. Impression: 1. Rounded hypoechoic lesion within the region of the reported access site with Doppler flow, concerning for pseudoaneurysm. Difficult to connect the lesion with the common femoral vessels on ultrasound. CT angiogram can further assess if clinically indicated. Electronically signed by: Babak Manzanares DO (07/03/2019 11:07 AM) [email or web address] PROCEDURE: CT ANGIO LOWER EXTREMITY RIGHT Axial CTA imaging of the right lower extremity was obtained after the administration of intravenous contrast. The MIP imaging is available. Coronal and sagittal reformats are also available. COMPARISON: None. INDICATION: Possible pseudoaneurysm. Partially visualized kidneys are unremarkable in appearance. Partially visualized bowel is normal in appearance. No free air-fluid. Patient status post total right hip arthroplasty. Old fractures are identified in the right pelvis as well. There is significant atrophy of the anterior compartment musculature in the right leg. No free intra-abdominal air or fluid. Vascular findings: Abdominal aorta is normal in appearance. There is an incidental note of an inferior pole left renal artery identified. Partially visualized left iliac system is normal in appearance. Right common femoral artery is unremarkable in appearance. At the proximalmost right superficial femoral artery there is a small filling defect which does not appear to significantly narrow the lumen of the artery. Deep femoral artery is patent. Superficial femoral artery, popliteal artery are normal in appearance. There is a three-vessel runoff into the foot. No pseudoaneurysm is identified. There is a possible small hematoma in the right groin associated with the femoral artery however there is no extraluminal enhancement. IMPRESSION: 1. Small extraluminal hematoma in the right common femoral artery. Additionally the small filling defect in the proximalmost superficial femoral artery may be thrombus or related to a closure device used during the procedure. Correlate with clinical history and angiography findings. Exposure: One or more of the following individualized dose reduction techniques were utilized for this examination: 1. Automated exposure control 2. Adjustment of the mA and/or kV according to patient size 3. Use of iterative reconstruction technique Electronically signed by: Daryn Romero MD (07/03/2019 1:34 PM) [id number] DICTATED AND SIGNED BY: DARYN ROMERO MD DATE: 07/03/19 1334 CC: FUAD CHAMBERS Jr., DO; MARIE LE MD ~ Course & Med Decision Making Course & Med Decision Making Pertinent Labs and Imaging studies reviewed. (See chart for details) [] Dragon Disclaimer Dragon Disclaimer This electronic medical record was generated, in whole or in part, using a voice recognition dictation system. Departure Departure: Impression: Primary Impression: Groin hematoma Disposition: HOME, SELF-CARE Condition: STABLE Referrals: MARIE LE MD (PCP) Patient Instructions: Hematoma Problem Qualifiers Primary Impression: Groin hematoma Encounter type: initial encounter Qualified Codes: S30.1XXA - Contusion of abdominal wall, initial encounter FUAD CHAMBERS Jr., DO Jul 03, 2019 10:01
--- NOTE | 2019-07-03 11:10 | RAD ---
EXTREM NONVASCULAR LTD RIGHT History: Recent heart catheter. Right inguinal swelling. Comparison: None Technique: Sonographic examination of the right inguinal soft tissues. Findings: Rounded hypoechoic lesion with Doppler flow in the region of the patient's access site. Difficult to identify tract extending to the common femoral artery. The lesion appears within the subcutaneous tissues overlying the common femoral vessels. The lesion measures 1.4 x 0.8 x 1.1 cm. Additional hypoechoic region inferior to the above-mentioned lesion without Doppler flow, may represent hematoma. Impression: 1. Rounded hypoechoic lesion within the region of the reported access site with Doppler flow, concerning for pseudoaneurysm. Difficult to connect the lesion with the common femoral vessels on ultrasound. CT angiogram can further assess if clinically indicated. Electronically signed by: Babak Manzanares DO (07/03/2019 11:07 AM) [email or web address]
[2019-07-03 11:40] LABS: CALCIUM 8.7 mg/dL (8.5-10.1); CREATININE 1.1 mg/dL (0.7-1.3); GFR 68.5; POTASSIUM 4.4 mmol/L (3.5-5.1)
[2019-07-03 11:46] LABS: ALBUMIN 3.6 g/dL (3.4-5.0); TOTAL BILIRUBIN 0.3 mg/dL (0.2-1.0); TOTAL PROTEIN 7.2 g/dL (6.4-8.2)
[2019-07-03 11:59] LABS: BASO % 1 % (0-3); EOS # 0.1 x10^3/uL (0.0-0.7); EOS % 2 % (0-3); HEMATOCRIT 44.7 % (39.0-53.0); LYMPH # 1.6 x10^3/uL (1.0-4.8); LYMPH % 25 % (24-48); MEAN CORPUSCULAR HEMOGLOBIN 32 pg (25-35); MEAN CORPUSCULAR HGB CONC 34 g/dL (31-37); MEAN CORPUSCULAR VOLUME 94 fL (79-100); MONO # 0.5 x10^3/uL (0.0-1.1); MONO % 8 % (0-9); NEUT # 4.1 x10^3uL (1.8-7.7); NEUT % 64 % (31-73); PLATELET COUNT 277 x10^3/uL (140-400); RED BLOOD COUNT 4.74 x10^6/uL (4.30-5.70); RED CELL DISTRIBUTION WIDTH 13.5 % (11.5-14.5); WHITE BLOOD COUNT 6.4 x10^3/uL (4.0-11.0)
[2019-07-03] MEDS ORDERED: IOHEXOL 350 MG/ML 100 ML VIAL. IV ONE (12:30)
[2019-07-03 12:40] VITALS: BP 137/92
[2019-07-03] MEDS ORDERED: ONDANSETRON PF 4 MG/2 ML VIAL. IVP ONE (13:15)
--- NOTE | 2019-07-03 13:38 | RAD ---
Axial CTA imaging of the right lower extremity was obtained after the administration of intravenous contrast. The MIP imaging is available. Coronal and sagittal reformats are also available. COMPARISON: None. INDICATION: Possible pseudoaneurysm. Partially visualized kidneys are unremarkable in appearance. Partially visualized bowel is normal in appearance. No free air-fluid. Patient status post total right hip arthroplasty. Old fractures are identified in the right pelvis as well. There is significant atrophy of the anterior compartment musculature in the right leg. No free intra-abdominal air or fluid. Vascular findings: Abdominal aorta is normal in appearance. There is an incidental note of an inferior pole left renal artery identified. Partially visualized left iliac system is normal in appearance. Right common femoral artery is unremarkable in appearance. At the proximalmost right superficial femoral artery there is a small filling defect which does not appear to significantly narrow the lumen of the artery. Deep femoral artery is patent. Superficial femoral artery, popliteal artery are normal in appearance. There is a three-vessel runoff into the foot. No pseudoaneurysm is identified. There is a possible small hematoma in the right groin associated with the femoral artery however there is no extraluminal enhancement. IMPRESSION: 1. Small extraluminal hematoma in the right common femoral artery. Additionally the small filling defect in the proximalmost superficial femoral artery may be thrombus or related to a closure device used during the procedure. Correlate with clinical history and angiography findings. Exposure: One or more of the following individualized dose reduction techniques were utilized for this examination: 1. Automated exposure control 2. Adjustment of the mA and/or kV according to patient size 3. Use of iterative reconstruction technique Electronically signed by: Daryn Romero MD (07/03/2019 1:34 PM) [id number]
== END 2019-07-03 14:00 | disposition home or self-care (01) ==
LOC: ER 09:34
DX: S30.1XXA Contusion of abdominal wall, initial encounter (principal); I25.10 Atherosclerotic heart disease of native coronary artery without angina pectoris; E78.00 Pure hypercholesterolemia, unspecified; I10 Essential (primary) hypertension; F17.210 Nicotine dependence, cigarettes, uncomplicated; Z86.718 Personal history of other venous thrombosis and embolism; Z88.8 Allergy status to other drugs, medicaments and biological substances; Z90.89 Acquired absence of other organs; Z90.49 Acquired absence of other specified parts of digestive tract; X58.XXXA Exposure to other specified factors, initial encounter; Y93.89 Activity, other specified; Y92.89 Other specified places as the place of occurrence of the external cause; Y99.8 Other external cause status
CPT/HCPCS: 36415; 76882; 80053; 85025; 85610; 96374; 96375; 99285; J2405; J3010; Q9967

== ENCOUNTER 2019-08-21 13:08 | Emergency (ER) | payer MEDICARE, OTHER ==
[~2019-08-21] VITALS: Ht 193 cm; Wt 123.5 kg
[2019-08-21 13:29] VITALS: BP 121/84
--- NOTE | 2019-08-21 14:27 | RAD ---
EXAM: Chest, single view. HISTORY: Syncope. COMPARISON: None. FINDINGS: A frontal view of the chest is obtained. There is mild diffuse increased interstitial opacity. There is no consolidation, pleural effusion or pneumothorax. The heart is normal in size. IMPRESSION: Diffuse increased interstitial opacity suggesting interstitial infiltrate or chronic interstitial changes. Electronically signed by: Grace Garcia MD (08/21/2019 2:24 PM) [facility]
[2019-08-21 14:31] LABS: BASO # 0.1 x10^3/uL (0.0-0.2); BASO % 1 % (0-3); EOS # 0.1 x10^3/uL (0.0-0.7); EOS % 2 % (0-3); HEMATOCRIT 43.6 % (39.0-53.0); HEMOGLOBIN 14.7 g/dL (13.0-17.5); LYMPH % 28 % (24-48); MEAN CORPUSCULAR HEMOGLOBIN 32 pg (25-35); MEAN CORPUSCULAR HGB CONC 34 g/dL (31-37); MEAN CORPUSCULAR VOLUME 95 fL (79-100); MONO # 0.6 x10^3/uL (0.0-1.1); MONO % 8 % (0-9); NEUT # 4.5 x10^3uL (1.8-7.7); NEUT % 62 % (31-73); PLATELET COUNT 291 x10^3/uL (140-400); RED BLOOD COUNT 4.58 x10^6/uL (4.30-5.70); RED CELL DISTRIBUTION WIDTH 13.5 % (11.5-14.5); WHITE BLOOD COUNT 7.3 x10^3/uL (4.0-11.0)
[2019-08-21 14:43] LABS: CALCIUM 8.8 mg/dL (8.5-10.1); GFR 76.5
[2019-08-21 14:44] LABS: BACTERIA,URINE 0 /HPF (0-FEW); BILIRUBIN,URINE NEG (NEG); CLARITY,URINE CLEAR; COLOR,URINE YELLOW; GLUCOSE,URINE NEG (NEG); NITRITE,URINE NEG (NEG); SQUAMOUS EPITHELIAL CELL,UR MOD /LPF; UROBILINOGEN,URINE 0.2 mg/dL (0.2 mg/dL)
[2019-08-21 14:50] LABS: ALBUMIN 3.5 g/dL (3.4-5.0); ALBUMIN/GLOBULIN RATIO 0.9 (1.0-1.7); TOTAL BILIRUBIN 0.3 mg/dL (0.2-1.0); TOTAL PROTEIN 7.4 g/dL (6.4-8.2)
--- NOTE | 2019-08-21 15:19 | PHYS DOC ---
Past History Past Medical History: CAD, High Cholesterol Additional Past Medical Histor: DVT and PE Past Surgical History: Cholecystectomy, Hip Replacement Additional Past Surgical Histo: cardiac stents 2016, 2019 Smoking: Cigarettes, Greater than 1 pack/day Alcohol Use: Rarely Drug Use: None General Adult EDM: Chief Complaint: NEAR SYCOPE HPI: HPI: 59-year-old male presents with syncopal episode. Patient was at home having coughing fit when he passed out. He was unconscious for about a minute. His was a little concerned he may be having a seizure as his teeth were clenched and he was not responding. She did not think he was breathing at first. When the patient woke up he was out of it for about a minute but then has been feeling okay since that time. He has had this happen once several years ago. He had no work-up at that time. Patient has no new medication changes, except that he has been taking Mucinex for his nasal drainage. He took some last night and this morning. He denies fever chills. He recently had a stent placed and there is another vessel they are watching. Review of Systems: Review of Systems: Constitutional: Denies fever or chills Eyes: Denies change in visual acuity HENT: Denies nasal congestion or sore throat Respiratory: Denies cough or shortness of breath Cardiovascular: Denies chest pain or edema GI: Denies abdominal pain, nausea, vomiting, bloody stools or diarrhea : Denies dysuria Musculoskeletal: Denies back pain or joint pain Integument: Denies rash Neurologic: Syncope. Denies headache, focal weakness or sensory changes Endocrine: Denies polyuria or polydipsia Lymphatic: Denies swollen glands Psychiatric: Denies depression or anxiety Heart Score: Risk Factors: Risk Factors: DM, Current or recent (<one month) smoker, HTN, HLP, family history of CAD, obesity. Risk Scores: Score 0 - 3: 2.5% MACE over next 6 weeks - Discharge Home Score 4 - 6: 20.3% MACE over next 6 weeks - Admit for Clinical Observation Score 7 - 10: 72.7% MACE over next 6 weeks - Early Invasive Strategies Allergies: Allergies: Allergies Coded Allergies Type Severity Reaction Last Updated Verified atorvastatin Allergy Intermediate Unknown 08/21/19 Yes citalopram Allergy Intermediate 07/03/19 Yes simvastatin Allergy Intermediate 2/20/20 Yes Physical Exam: PE: Constitutional: Well developed, obese, well nourished, no acute distress, non- toxic appearance. [] HENT: Normocephalic, atraumatic, bilateral external ears normal, oropharynx moist, no oral exudates, nose normal. [] Eyes: PERRLA, EOMI, conjunctiva normal, no discharge. [] Neck: Normal range of motion, no tenderness, supple, no stridor. [] Cardiovascular: Heart rate regular rhythm, no murmur [] Lungs & Thorax: Bilateral breath sounds clear to auscultation [] Abdomen: Bowel sounds normal, soft, no tenderness, no masses, no pulsatile masses. [] Skin: Warm, dry, no erythema, no rash. [] Back: No tenderness, no CVA tenderness. [] Extremities: No tenderness, no cyanosis, no clubbing, ROM intact, no edema. [] Neurologic: Alert and oriented X 3, normal motor function, normal sensory function, no focal deficits noted. [] Psychologic: Affect normal, judgement normal, mood normal. [] Current Patient Data: Labs: Laboratory Tests Test 08/21/19 13:50 08/21/19 13:55 Urine Collection Type Unknown Urine Color Yellow Urine Clarity Clear Urine pH 6.5 Urine Specific [place] 1.010 Urine Protein Neg (NEG-TRACE) Urine Glucose (UA) Neg mg/dL (NEG) Urine Ketones (Stick) Neg mg/dL (NEG) Urine Blood Small (NEG) Urine Nitrite Neg (NEG) Urine Bilirubin Neg (NEG) Urine Urobilinogen Dipstick 0.2 mg/dL (0.2 mg/dL) Urine Leukocyte Esterase Neg (NEG) Urine RBC 3-5 /HPF (0-2) Urine WBC 1-4 /HPF (0-4) Urine Squamous Epithelial Cells Mod /LPF Urine Bacteria 0 /HPF (0-FEW) White Blood Count 7.3 x10^3/uL (4.0-11.0) Red Blood Count 4.58 x10^6/uL (4.30-5.70) Hemoglobin 14.7 g/dL (13.0-17.5) Hematocrit 43.6 % (39.0-53.0) Mean Corpuscular Volume 95 fL (79-100) Mean Corpuscular Hemoglobin 32 pg (25-35) Mean Corpuscular Hemoglobin Concent 34 g/dL (31-37) Red Cell Distribution Width 13.5 % (11.5-14.5) Platelet Count 291 x10^3/uL (140-400) Neutrophils (%) (Auto) 62 % (31-73) Lymphocytes (%) (Auto) 28 % (24-48) Monocytes (%) (Auto) 8 % (0-9) Eosinophils (%) (Auto) 2 % (0-3) Basophils (%) (Auto) 1 % (0-3) Neutrophils # (Auto) 4.5 x10^3uL (1.8-7.7) Lymphocytes # (Auto) 2.0 x10^3/uL (1.0-4.8) Monocytes # (Auto) 0.6 x10^3/uL (0.0-1.1) Eosinophils # (Auto) 0.1 x10^3/uL (0.0-0.7) Basophils # (Auto) 0.1 x10^3/uL (0.0-0.2) Sodium Level 137 mmol/L (136-145) Potassium Level 4.0 mmol/L (3.5-5.1) Chloride Level 101 mmol/L (98-107) Carbon Dioxide Level 28 mmol/L (21-32) Anion Gap 8 (6-14) Blood Urea Nitrogen 13 mg/dL (8-26) Creatinine 1.0 mg/dL (0.7-1.3) Estimated GFR (Cockcroft-Gault) 76.5 BUN/Creatinine Ratio 13 (6-20) Glucose Level 101 mg/dL (70-99) H Calcium Level 8.8 mg/dL (8.5-10.1) Total Bilirubin 0.3 mg/dL (0.2-1.0) Aspartate Amino Transferase (AST) 19 U/L (15-37) Alanine Aminotransferase (ALT) 23 U/L (16-63) Alkaline Phosphatase 73 U/L (46-116) Troponin I Quantitative < 0.017 ng/mL (0-0.055) Total Protein 7.4 g/dL (6.4-8.2) Albumin 3.5 g/dL (3.4-5.0) Albumin/Globulin Ratio 0.9 (1.0-1.7) L Vital Signs: Vital Signs Date Time Temp Pulse Resp B/P (MAP) Pulse Ox O2 Delivery O2 Flow Rate FiO2 08/21/19 13:29 97.8 76 16 121/84 (96) 98 Room Air EKG: EKG: [] Radiology/Procedures: Radiology/Procedures: [] Impressions: EXAM: Chest, single view. HISTORY: Syncope. COMPARISON: None. FINDINGS: A frontal view of the chest is obtained. There is mild diffuse increased interstitial opacity. There is no consolidation, pleural effusion or pneumothorax. The heart is normal in size. IMPRESSION: Diffuse increased interstitial opacity suggesting interstitial infiltrate or chronic interstitial changes. Electronically signed by: Grace Garcia MD (08/21/2019 2:24 PM) [facility] DICTATED AND SIGNED BY: GRACE GARCIA MD DATE: 08/21/19 1423 CC: YULIYA BRENNAN DO; MARIE LE MD ~ Course & Med Decision Making: Course & Med Decision Making Pertinent Labs and Imaging studies reviewed. (See chart for details) The patient's labs are unremarkable. His troponin is negative. His EKG is unremarkable. The patient's chest x-ray does show some diffuse increased interstitial opacities. Could be viral given his nasal congestion. In the area of COVID 19, I will go ahead and test this patient since he is having increased shortness of breath, chest x-ray findings, and a syncopal episode. I will discharge him to home at this time. I advised that he remain home until his test comes back. [] Dragon Disclaimer: Dragon Disclaimer: This electronic medical record was generated, in whole or in part, using a voice recognition dictation system. Departure Departure: Impression: Primary Impression: Syncope Qualified Codes: R55 - Syncope and collapse Additional Impression: SOB (shortness of breath) Disposition: 01 HOME, SELF-CARE Condition: STABLE Referrals: MARIE LE MD (PCP) Patient Instructions: Syncope, [id number], Viral Syndrome YULIYA BRENNAN DO Aug 21, 2019 15:19
--- NOTE | 2019-08-21 18:07 | EKG ---
[address] [address] Test Date: 2019-08-21 Test Time: 14:40:22 Pat Name: LAKHWINDER VENTURA Department: Room: Gender: M [employer] Recorder: : [id number] Requested By: YULIYA BRENNAN Order Number: [id number] Reading MD: Vargas Hinson Measurements Intervals Frederic Rate: 69 P: 33 MT: 138 QRS: 17 QRSD: 90 T: 24 QT: 384 QTc: 413 Interpretive Statements SINUS RHYTHM NORMAL ECG Electronically Signed On 08-22-2019 8:05:30 CDT by Vargas Hinson
== END 2019-08-21 15:55 | disposition home or self-care (01) ==
LOC: ER 13:08
DX: R55 Syncope and collapse (principal); R06.02 Shortness of breath; Z20.828 Contact with and (suspected) exposure to other viral communicable diseases; I25.10 Atherosclerotic heart disease of native coronary artery without angina pectoris; E78.00 Pure hypercholesterolemia, unspecified; F17.210 Nicotine dependence, cigarettes, uncomplicated; Z86.718 Personal history of other venous thrombosis and embolism; Z86.711 Personal history of pulmonary embolism; Z88.8 Allergy status to other drugs, medicaments and biological substances
CPT/HCPCS: 36415; 71045; 80053; 81001; 84484; 85025; 85610; 85730; 87635; 93005; 99285-25